=== PATIENT | female | born 1955 | race Hispanic/Latino ===

== ENCOUNTER 2018-04-12 20:52 | Emergency (ER) | payer OTHER ==
--- OUTSIDE RECORDS SUMMARY | 2018-04-12 20:54 | XMS REPORT ---
:1955 Author Organization eClinicalWorks Care Team Providers Name Role Phone Nirav Carlton Provider Role Unavailable Allergies No Known Allergies Problems Problem Type Condition Code Onset Dates Condition Status Assessment Osteoarthritis M19.90 Active Assessment Benign essential HTN I10 Active Assessment Tubular adenoma of colon D12.6 Active Assessment Body mass index (BMI) 45.0-49.9, Z68.42 Active adult Problem Osteoarthritis M19.90 Active Problem Body mass index (BMI) 45.0-49.9, Z68.42 Active adult Problem Benign essential HTN I10 Active Problem BMI 45.0-49.9, adult Z68.42 Active Problem Benign essential hypertension I10 Active Problem Tubular adenoma of colon D12.6 Active Problem Osteoarthritis of multiple joints M15.9 Active Medications Medication Code Code Instructions Start End Date Status Dosage System Date Lisinopril-Hyd [facility] [id number] 20-12.5 MG Active 1 tablet rochlorothiazi Orally TWICE a de day Results No Known Results Summary Purpose eClinicalWorks Submission
[2018-04-12] MEDS ORDERED: HYDROCODONE/APAP 7.5/325 MG TAB ONE (21:31)
--- NOTE | 2018-04-12 21:49 | RAD REPORT ---
EXAM DESCRIPTION: CT - Head Brain Wo Cont - 04/12/2018 9:32 pm CLINICAL HISTORY: Head injury with headache COMPARISON: None. TECHNIQUE: Computed axial tomography of the head was obtained. IV contrast was not requested. All CT scans are performed using dose optimization technique as appropriate and may include automated exposure control or mA/KV adjustment according to patient size. FINDINGS: An intracranial bleed is not seen . The ventricles are normal in caliber. No extra-axial fluid collection is noted. Fluid within the sinuses/ mastoids is not seen. IMPRESSION: No acute intracranial abnormality is seen. If patient's symptoms persist MRI of the bra in would be recommended.
--- NOTE | 2018-04-12 22:03 | EDPHYS ---
Physician Documentation [facility] Name: Misty Garrett Age: 62 yrs Sex: Female : 1955 Arrival Date: 04/12/2018 Time: 20:55 Bed 16 Private MD: [facility] ED Physician Prateek Lassiter HPI: 04/12 21:07 This 62 yrs old Female presents to ER via Ambulatory with complaints of Head kav Injury-Adult. 21:57 The patient or guardian reports injury, pain, tenderness. The complaints affect the top kav of head. Context of injury: The problem was sustained at work, resulted from standing up, and hitting a shelf. Onset: The symptoms/episode began/occurred acutely, just prior to arrival. Associated signs and symptoms: Loss of consciousness: This patient did not experience any loss of consciousness. Pertinent positives: headache, top of head. Severity of symptoms: At their worst the symptoms were moderate, just prior to arrival, in the emergency department the symptoms are unchanged. The patient has not experienced similar symptoms in the past. The patient has not experienced similar symptoms in the past. The patient has not recently seen a physician. Patient report standing up to put up laundry and hit the top of her head on the linen cart. She c/o moderated tenderness top of head. Slight swelling top of head and tenderness with palpation.. Historical: - Allergies: 21:01 Morphine; aj - Home Meds: 21:01 lisinopril-hydrochlorothiazide 20-12.5 mg oral tab 1 tab once daily [Active]; aj - PMHx: 21:01 Hypertension; aj - PSHx: 21:01 Cholecystectomy; Knee surgery; aj - Immunization history:: Adult Immunizations up to date. - Social history:: Smoking status: Patient/guardian denies using tobacco. - Ebola Screening: : Patient negative for fever greater than or equal to 101.5 degrees Fahrenheit, and additional compatible Ebola Virus Disease symptoms Patient denies exposure to infectious person Patient denies travel to an Ebola-affected area in the 21 days before illness onset No symptoms or risks identified at this time. - Family history:: not pertinent. - Hospitalizations: : No recent hospitalization is reported. ROS: 21:59 Constitutional: Negative for fever, chills, and weight loss, Eyes: Negative for injury, kav pain, redness, and discharge, ENT: Negative for injury, pain, and discharge, Neck: Negative for injury, pain, and swelling, Cardiovascular: Negative for chest pain, palpitations, and edema, Respiratory: Negative for shortness of breath, cough, wheezing, and pleuritic chest pain, Abdomen/GI: Negative for abdominal pain, nausea, vomiting, diarrhea, and constipation, Back: Negative for injury and pain, : Negative for injury, bleeding, discharge, and swelling, MS/Extremity: Negative for injury and deformity, Neuro: Negative for headache, weakness, numbness, tingling, and seizure, Psych: Negative for depression, anxiety, suicide ideation, homicidal ideation, and hallucinations, Allergy/Immunology: Negative for hives, rash, and allergies, Endocrine: Negative for neck swelling, polydipsia, polyuria, polyphagia, and marked weight changes, Hematologic/Lymphatic: Negative for swollen nodes, abnormal bleeding, and unusual bruising. 21:59 Skin: Positive for swelling, of the top of head. Exam: 21:59 Constitutional: This is a well developed, well nourished patient who is awake, alert, kav and in no acute distress. Eyes: Pupils equal round and reactive to light, extra-ocular motions intact. Lids and lashes normal. Conjunctiva and sclera are non-icteric and not injected. Cornea within normal limits. Periorbital areas with no swelling, redness, or edema. ENT: Nares patent. No nasal discharge, no septal abnormalities noted. Tympanic membranes are normal and external auditory canals are clear. Oropharynx with no redness, swelling, or masses, exudates, or evidence of obstruction, uvula midline. Mucous membranes moist. Neck: Trachea midline, no thyromegaly or masses palpated, and no cervical lymphadenopathy. Supple, full range of motion without nuchal rigidity, or vertebral point tenderness. No Meningismus. Chest/axilla: Normal chest wall appearance and motion. Nontender with no deformity. No lesions are appreciated. Cardiovascular: Regular rate and rhythm with a normal S1 and S2. No gallops, murmurs, or rubs. Normal PMI, no JVD. No pulse deficits. Respiratory: Lungs have equal breath sounds bilaterally, clear to auscultation and percussion. No rales, rhonchi or wheezes noted. No increased work of breathing, no retractions or nasal flaring. Abdomen/GI: Soft, non-tender, with normal bowel sounds. No distension or tympany. No guarding or rebound. No evidence of tenderness throughout. Back: No spinal tenderness. No costovertebral tenderness. Full range of motion. Skin: Warm, dry with normal turgor. Normal color with no rashes, no lesions, and no evidence of cellulitis. MS/ Extremity: Pulses equal, no cyanosis. Neurovascular intact. Full, normal range of motion. Neuro: Awake and alert, GCS 15, oriented to person, place, time, and situation. Cranial nerves II-XII grossly intact. Motor strength 5/5 in all extremities. Sensory grossly intact. Cerebellar exam normal. Normal gait. Psych: Awake, alert, with orientation to person, place and time. Behavior, mood, and affect are within normal limits. 21:59 Head/face: Noted is contusion, that is superficial, of the top of head, swelling, that is mild, of the top of head, tenderness, that is moderate. Vital Signs: 21:01 BP 145 / 79; Pulse 80; Resp 18; Temp 98.6; Pulse Ox 98% on R/A; Weight 109.77 kg; aj Height 5 ft. 1 in. (154.94 cm); 21:45 BP 136 / 81; Pulse 76; Resp 16; Temp 98(O); Pulse Ox 100% on R/A; Pain 3/10; bs1 21:01 Body Mass Index 45.73 (109.77 kg, 154.94 cm) Leland Coma Score: 20:59 Eye Response: spontaneous(4). Verbal Response: oriented(5). Motor Response: obeys aj commands(6). Total: 15. 21:57 Eye Response: spontaneous(4). Verbal Response: oriented(5). Motor Response: obeys kav commands(6). Total: 15. 21:59 Eye Response: spontaneous(4). Verbal Response: oriented(5). Motor Response: obeys kav commands(6). Total: 15. MDM: 21:22 Medical screening is not applicable. kav 21:59 Data reviewed: vital signs, nurses notes, radiologic studies, CT scan. ka 04/12 21:21 Order name: CT Head Brain wo Cont; Complete Time: 21:52 kav Administered Medications: 21:43 Drug: Rome (7.5 mg-325 mg) 1 tabs Route: PO; bs1 22:16 Follow up: Response: No adverse reaction bs1 Disposition: 23:30 Co-signature as Attending Physician, Prateek Lassiter MD. prabha Disposition: 04/12/18 22:02 Discharged to Home. Impression: Contusion of scalp. - Condition is Stable. - Discharge Instructions: Contusion, [id number]. - Medication Reconciliation Form, Thank You Letter form. - Follow up: Nirav Carlton DO; When: 2 - 3 days; Reason: If symptoms return, Recheck today's complaints, Continuance of care, Re-evaluation by your physician. - Problem is new. - Symptoms have improved. Signatures: Dispatcher [employer] EDAilyn John, RN RN Prateek Heath MD MD pkl Vern, Katherine, PUBLIC HEALTH ADMINISTRATOR PUBLIC HEALTH ADMINISTRATOR Aspen Quispe, RN RN bs1 Corrections: (The following items were deleted from the chart) 22:16 22:02 04/12/2018 22:02 Discharged to Home. Impression: Contusion of scalp. Condition is bs1 Stable. Forms are Medication Reconciliation Form, Thank You Letter, Antibiotic Education, Prescription Opioid Use. Follow up: Nirav Carlton; When: 2 - 3 days; Reason: If symptoms return, Recheck today's complaints, Continuance of care, Re-evaluation by your physician. Problem is new. Symptoms have improved. kav
--- NOTE | 2018-04-12 22:03 | ER ---
Nurse's Notes [facility] Emergency Department Name: Misty Garrett Age: 62 yrs Sex: Female : 1955 Arrival Date: 04/12/2018 Time: 20:55 Bed 16 Private MD: Nirav Carlton Diagnosis: Contusion of scalp Presentation: 04/12 20:59 Presenting complaint: Patient states: Hit top of head on shelf of linen cart 1 hour aj ago. Reports pain to top of head. No bruising or bleeding noted. Transition of care: patient was not received from another setting of care. Mechanism of Injury: resulted from impacting a hard surface, hitting metal surface. Onset of symptoms was April 12, 2018. Risk Assessment: Do you want to hurt yourself or someone else? Patient reports no desire to harm self or others. Initial Sepsis Screen: Does the patient meet any 2 criteria? No. Patient's initial sepsis screen is negative. Does the patient have a suspected source of infection? No. Patient's initial sepsis screen is negative. Care prior to arrival: None. 20:59 Method Of Arrival: Ambulatory 20:59 Acuity: SCAR 4 aj Triage Assessment: 21:01 General: Appears in no apparent distress. comfortable, Behavior is calm, cooperative, aj appropriate for age. Pain: Complains of pain in top of head. Neuro: Level of Consciousness is awake, alert, obeys commands, Oriented to person, place, time, situation, Appropriate for age Reports headache. Respiratory: Airway is patent Respiratory effort is even, unlabored, Respiratory pattern is regular, symmetrical. Derm: Skin is intact, is healthy with good turgor, Skin is pink, warm \T\ dry. normal. Historical: - Allergies: 21:01 Morphine; aj - Home Meds: 21:01 lisinopril-hydrochlorothiazide 20-12.5 mg oral tab 1 tab once daily [Active]; aj - PMHx: 21:01 Hypertension; aj - PSHx: 21:01 Cholecystectomy; Knee surgery; aj - Immunization history:: Adult Immunizations up to date. - Social history:: Smoking status: Patient/guardian denies using tobacco. - Ebola Screening: : Patient negative for fever greater than or equal to 101.5 degrees Fahrenheit, and additional compatible Ebola Virus Disease symptoms Patient denies exposure to infectious person Patient denies travel to an Ebola-affected area in the 21 days before illness onset No symptoms or risks identified at this time. - Family history:: not pertinent. - Hospitalizations: : No recent hospitalization is reported. Screenin:13 Abuse screen: Denies threats or abuse. Denies injuries from another. Nutritional bs1 screening: No deficits noted. Tuberculosis screening: No symptoms or risk factors identified. Fall Risk None identified. Assessment: 21:05 General: Appears in no apparent distress. uncomfortable, Behavior is calm, cooperative, bs1 appropriate for age. Pain: Complains of pain in face and top of head Pain does not radiate. Neuro: Level of Consciousness is awake, alert, obeys commands, Oriented to person, place, time, situation, Appropriate for age Gait is steady, Speech is normal, Facial symmetry appears normal, Pupils are PERRLA, Intact Reports headache. Cardiovascular: Denies chest pain, shortness of breath, Heart tones S1 S2 present Capillary refill < 3 seconds Patient's skin is warm and dry. Respiratory: Airway is patent Trachea midline Respiratory effort is even, unlabored, Respiratory pattern is regular, symmetrical, Breath sounds are clear bilaterally. 21:05 GI: No signs and/or symptoms were reported involving the gastrointestinal system. : bs1 No signs and/or symptoms were reported regarding the genitourinary system. EENT: No signs and/or symptoms were reported regarding the EENT system. Derm: Skin is intact, patient reports pain to scalp/top of head, no open wound/drainage noted, reports hitting head, no loc. Musculoskeletal: Circulation, motion, and sensation intact. Capillary refill < 3 seconds, Range of motion: intact in all extremities. 22:10 Reassessment: Patient appears in no apparent distress at this time. Patient and/or bs1 family updated on plan of care and expected duration. Pain level reassessed. Patient is alert, oriented x 3, equal unlabored respirations, skin warm/dry/pink. Patient states understanding of discharge instructions/POC. Vital Signs: 21:01 BP 145 / 79; Pulse 80; Resp 18; Temp 98.6; Pulse Ox 98% on R/A; Weight 109.77 kg; aj Height 5 ft. 1 in. (154.94 cm); 21:45 BP 136 / 81; Pulse 76; Resp 16; Temp 98(O); Pulse Ox 100% on R/A; Pain 3/10; bs1 21:01 Body Mass Index 45.73 (109.77 kg, 154.94 cm) aj Wade Coma Score: 20:59 Eye Response: spontaneous(4). Verbal Response: oriented(5). Motor Response: obeys aj commands(6). Total: 15. 21:57 Eye Response: spontaneous(4). Verbal Response: oriented(5). Motor Response: obeys kav commands(6). Total: 15. 21:59 Eye Response: spontaneous(4). Verbal Response: oriented(5). Motor Response: obeys kav commands(6). Total: 15. ED Course: 20:55 Patient arrived in ED. es 20:55 Nirav Carlton DO is Private Physician. es 21:00 Triage completed. aj 21:01 Arm band placed on left wrist. Patient placed in an exam room. aj 21:06 July Montgomery FNP is PHCP. kav 21:06 Prateek Lassiter MD is Attending Physician. kav 21:13 Aspen Wilder, AN is Primary Nurse. bs1 21:15 Patient has correct armband on for positive identification. Bed in low position. Call bs1 light in reach. Side rails up X 1. Pulse ox on. NIBP on. Warm blanket given. 21:[address] via wheelchair. vr 21:29 CT completed. Patient tolerated procedure well. Patient moved back from CT. nj 21:33 CT Head Brain wo Cont In Process Unspecified. EDMS 22:02 Nirav Carlton DO is Referral Physician. kav 22:14 No provider procedures requiring assistance completed. Patient did not have IV access bs1 during this emergency room visit. Administered Medications: 21:43 Drug: Isabel (7.5 mg-325 mg) 1 tabs Route: PO; bs1 22:16 Follow up: Response: No adverse reaction bs1 Outcome: 22:02 Discharge ordered by . kav 22:14 Discharged to home ambulatory. bs1 22:14 Condition: stable 22:14 Discharge instructions given to patient, Instructed on discharge instructions, follow up and referral plans. Demonstrated understanding of instructions, follow-up care. 22:16 Patient left the ED. bs1 Signatures: Dispatcher [employer] EDAilyn John, RN RN July Carmen, MAINTENANCE TEAM MEMBER MAINTENANCE TEAM MEMBER coty Montenegro, Dian Chauhan Nathan nj Salazar, Brittany, RN RN bs1 Corrections: (The following items were deleted from the chart) 22:12 21:05 Neuro: Level of Consciousness is awake, alert, obeys commands, Oriented to bs1 person, place, time, situation, Appropriate for age Gait is steady, Speech is normal, Facial symmetry appears normal, Pupils are PERRLA, Intact bs1
[2018-04-12 22:48] VITALS: BP 136/81; TEMP 98; O2SAT 100
== END 2018-04-12 22:16 | disposition home or self-care (01) ==
LOC: ER 20:52
DX: S00.03XA Contusion of scalp, initial encounter (principal); W22.09XA Striking against other stationary object, initial encounter; Y93.89 Activity, other specified; Y92.69 Other specified industrial and construction area as the place of occurrence of the external cause; Z88.5 Allergy status to narcotic agent; I10 Essential (primary) hypertension
CPT/HCPCS: 70450; 99284

== ENCOUNTER 2018-11-07 16:34 | Emergency (ER) | payer OTHER ==
--- OUTSIDE RECORDS SUMMARY | 2018-11-07 16:37 | XMS REPORT ---
[...] End Date Status Dosage System Date Lisinopril-Hyd [facility] [id number] 20-12.5 MG Active 1 tablet rochlorothiazi Orally TWICE a de day Results No Known Results Summary Purpose eClinicalWorks Submission
--- OUTSIDE RECORDS SUMMARY | 2018-11-07 16:37 | XMS REPORT ---
:1955 Author Organization eClinicalWorks Care Team Providers Name Role Phone Nirav Carlton Provider Role Unavailable Allergies, Adverse Reactions, Alerts Substance Reaction Event Type N.K.D.A. Info Not Available Non Drug Allergy Problems Problem Type Condition Code Onset Dates Condition Status Assessment Benign essential HTN I10 Active Assessment Encounter for preventative adult Z00.01 Active health care exam with abnormal findings Problem Osteoarthritis M19.90 Active Problem Body mass index (BMI) 45.0-49.9, Z68.42 Active adult Problem Benign essential HTN I10 Active Problem BMI 45.0-49.9, adult Z68.42 Active Problem Benign essential hypertension I10 Active Problem Tubular adenoma of colon D12.6 Active Problem Osteoarthritis of multiple joints M15.9 Active Assessment Body mass index (BMI) 45.0-49.9, Z68.42 Active adult Assessment Screening mammogram for high-risk Z12.31 Active patient Assessment Osteoarthritis M19.90 Active Assessment Tubular adenoma of colon D12.6 Active Assessment Need for Tdap vaccination Z23 Active Medications Medication Code Code Instructions Start End Date Status Dosage System Date Lisinopril-Hyd [facility] [id number] 20-12.5 MG Active 1 tablet rochlorothiazi Orally TWICE a de day Results No Known Results Immunizations Vaccine Administration Date TDAP > 7 Years-Adacel Jun 05, 2018 Summary Purpose eClinicalWorks Submission
--- OUTSIDE RECORDS SUMMARY | 2018-11-07 16:37 | XMS REPORT ---
:1955 Author Organization eClinicalWorks Care Team Providers Name Role Phone CarltonNirav Provider Role Unavailable Allergies No Known Allergies Problems Problem Type Condition Code Onset Dates Condition Status Assessment Work related injury Y99.0 Active Assessment Contusion of scalp, subsequent S00.03XD Active encounter Problem Osteoarthritis M19.90 Active Problem Body mass index (BMI) 45.0-49.9, Z68.42 Active adult Problem Benign essential HTN I10 Active Problem BMI 45.0-49.9, adult Z68.42 Active Problem Benign essential hypertension I10 Active Problem Tubular adenoma of colon D12.6 Active Problem Osteoarthritis of multiple joints M15.9 Active Medications Medication Code Code Instructions Start End Date Status Dosage System Date Lisinopril-Hyd [facility] [id number] 20-12.5 MG Active 1 tablet rochlorothiazi Orally TWICE a de day Results No Known Results Summary Purpose eClinicalWorks Submission
[2018-11-07] MEDS ORDERED: TRAMADOL HCL 50 MG TAB ONE (18:30)
--- NOTE | 2018-11-07 19:16 | RAD REPORT ---
EXAM DESCRIPTION: RAD - Foot Left 3 View - 11/07/2018 6:53 pm CLINICAL HISTORY: Left Foot pain FINDINGS: No fracture or dislocation is seen. Bones appear osteoporotic. Small to moderate spur extends off of the plantar aspect of the calcaneus
--- NOTE | 2018-11-07 19:32 | EDPHYS ---
Physician Documentation [facility] Name: Misty Garrett Age: 63 yrs Sex: Female : 1955 Arrival Date: 11/07/2018 Time: 16:38 Bed 16 Private MD: [facility] ED Physician Renny Singh HPI: 11/07 18:11 This 63 yrs old Female presents to ER via Ambulatory with complaints of Foot jmm Pain. 18:11 The patient presents with pain, that is acute. Onset: The symptoms/episode jmm began/occurred 2 day(s) ago. Modifying factors: The symptoms are alleviated by nothing. the symptoms are aggravated by weight bearing. Associated signs and symptoms: Pertinent positives: swelling, Pertinent negatives fever. This is a 63 year old female with a history of htn that presents to the ED with complaints of left great toe pain beginning approx 2 days ago after a cart rolled over her foot. Patient denies fever. Patient states she noticed purulent drainage coming from the toenail. . Historical: - Allergies: 17:21 Morphine; "i get wild, hallucinations"; tw2 - Home Meds: 17:21 lisinopril-hydrochlorothiazide 20-12.5 mg Oral tab 1 tab once daily [Active]; tw2 - PMHx: 17:21 Hypertension; tw2 - PSHx: 17:21 Cholecystectomy; Knee surgery; tw2 - Immunization history:: Adult Immunizations. - Social history:: Smoking status: Patient/guardian denies using tobacco. - Ebola Screening: : Patient denies travel to an Ebola-affected area in the 21 days before illness onset. ROS: 18:11 Constitutional: Negative for fever, chills, and weight loss, Cardiovascular: Negative jmm for chest pain, palpitations, and edema, Respiratory: Negative for shortness of breath, cough, wheezing, and pleuritic chest pain. 18:11 MS/extremity: Positive for pain, swelling. 18:11 All other systems are negative. Exam: 18:11 Head/Face: atraumatic. Eyes: EOMI, no conjunctival erythema appreciated ENT: Moist jmm Mucus Membranes Neck: Trachea midline, Supple Chest/axilla: Normal chest wall appearance and motion. Cardiovascular: Regular rate and rhythm. No edema appreciated Respiratory: Normal respirations, no respiratory distress appreciated Abdomen/GI: Non distended, soft 18:11 Constitutional: The patient appears alert, awake, uncomfortable. 18:11 Skin: erythema noted to the left great toe distally, TTP, < 2 sec dist cap refill, NVI. 18:11 Neuro: Orientation: is normal, Mentation: is normal, Memory: is normal. 18:11 Psych: Behavior/mood is pleasant, cooperative. Vital Signs: 17:21 BP 156 / 91; Pulse 94; Resp 17; Temp 97.0(TE); Pulse Ox 100% on R/A; Weight 107.05 kg tw2 (R); Height 5 ft. 1 in. (154.94 cm); Pain 5/10; 19:15 BP 121 / 69; Pulse 87; Resp 19 S; Temp 98.8(O); Pulse Ox 99% on R/A; cc3 17:21 Body Mass Index 44.59 (107.05 kg, 154.94 cm) tw2 MDM: 18:11 Patient medically screened. [facility] 19:32 Data reviewed: vital signs, nurses notes. Counseling: I had a detailed discussion with gage the patient and/or guardian regarding: the historical points, exam findings, and any diagnostic results supporting the discharge/admit diagnosis, radiology results, the need for outpatient follow up, to return to the emergency department if symptoms worsen or persist or if there are any questions or concerns that arise at home. ED course: Patient is alert and non toxic in appearance in the ED. xray negative for fracture, patient will be treated with antibiotics due to concerns for cellulitis. Patient given strict return precautions. Patient understood and agrees with the plan of care. . 11/07 18:51 Order name: Foot Left 3 View; Complete Time: 19:21 EDMS Administered Medications: 18:11 Drug: traMADol 50 mg Route: PO; 18:21 Follow up: Response: No adverse reaction Disposition: 11/08 07:31 Co-signature as Attending Physician, Renny Singh MD I agree with the assessment and kdr plan of care. Disposition: 11/07/18 19:32 Discharged to Home. Impression: Cellulitis of left toe. - Condition is Stable. - Discharge Instructions: Cellulitis, Adult, Eyyt-mm-Ojoy. - Prescriptions for Ultracet 37.5- 325 mg Oral Tablet - take 1 tablet by ORAL route every 6 hours - for up to 5 days; do not exceed 8 tablets per day.; 12 tablet. Bactrim DS 800- 160 mg Oral Tablet - take 1 tablet by ORAL route every 12 hours for 10 days; 20 tablet. - Medication Reconciliation Form, Thank You Letter, Antibiotic Education, Prescription Opioid Use, Work release form form. - Follow up: Antonio Castellano DPM; When: 1 - 2 days; Reason: Recheck today's complaints, Continuance of care, Re-evaluation by your physician. Signatures: Dispatcher [employer] EDKS Renny Singh MD MD [facility] Miko Azul PA PA Moises Mobley, RN RN hj Alyson Palma RN RN tw2 Krissy Hernandez cc3 Corrections: (The following items were deleted from the chart) 11/07 18:51 18:12 Foot Right 3 View+RAD.RAD.BRZ ordered. [facility] 19:50 19:32 11/07/2018 19:32 Discharged to Home. Impression: Cellulitis of left toe. cc3 Condition is Stable. Forms are Medication Reconciliation Form, Thank You Letter, Antibiotic Education, Prescription Opioid Use. Follow up: Antonio Castellano; When: 1 - 2 days; Reason: Recheck today's complaints, Continuance of care, Re-evaluation by your physician. gage
--- NOTE | 2018-11-07 19:32 | ER ---
Nurse's Notes [facility] Name: Misty Garrett Age: 63 yrs Sex: Female : 1955 Arrival Date: 11/07/2018 Time: 16:38 Bed 16 Private MD: Nirav Carlton Diagnosis: Cellulitis of left toe Presentation: 11/07 17:19 Presenting complaint: Patient states: my big toe on my LEFT foot hurts really bad, last tw2 night it was throbbing after work, i soaked it last night and it kept me awake, i think i have pus. 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 Transition of care: patient was not received from another setting of care. Onset of symptoms was November 07, 2018. Risk Assessment: Do you want to hurt yourself or someone else? Patient reports no desire to harm self or others. Initial Sepsis Screen: Does the patient meet any 2 criteria? No. Patient's initial sepsis screen is negative. Does the patient have a suspected source of infection? No. Patient's initial sepsis screen is negative. Care prior to arrival: None. 17:19 Method Of Arrival: Ambulatory tw2 17:19 Acuity: SCAR 4 tw2 Triage Assessment: 17:21 General: Appears uncomfortable, obese, Behavior is calm, cooperative, appropriate for tw2 age. Pain: Complains of pain in left first toe, medial aspect of left toes and Left first toenail. Historical: - Allergies: 17:21 Morphine; "i get wild, hallucinations"; tw2 - Home Meds: 17:21 lisinopril-hydrochlorothiazide 20-12.5 mg Oral tab 1 tab once daily [Active]; tw2 - PMHx: 17:21 Hypertension; tw2 - PSHx: 17:21 Cholecystectomy; Knee surgery; tw2 - Immunization history:: Adult Immunizations. - Social history:: Smoking status: Patient/guardian denies using tobacco. - Ebola Screening: : Patient denies travel to an Ebola-affected area in the 21 days before illness onset. Screenin:58 Abuse screen: Denies threats or abuse. Denies injuries from another. Nutritional hj screening: No deficits noted. Tuberculosis screening: No symptoms or risk factors identified. Fall Risk None identified. Assessment: 19:15 Reassessment: Patient appears in no apparent distress at this time. Patient and/or cc3 family updated on plan of care and expected duration. Pain level reassessed. Patient is alert, oriented x 3, equal unlabored respirations, skin warm/dry/pink. Received this female patient from morning shift RN Moises as a case of left foot pain. No IV cannula in situ. 19:45 Reassessment: Patient appears in no apparent distress at this time. Patient and/or cc3 family updated on plan of care and expected duration. Pain level reassessed. Patient is alert, oriented x 3, equal unlabored respirations, skin warm/dry/pink. MIGUEL Azul discharged the patient home with prescription given. No IV cannula in situ. Patient left ER vitally stable and ambulatory. Patient states feeling better. Patient states symptoms have improved. Vital Signs: 17:21 BP 156 / 91; Pulse 94; Resp 17; Temp 97.0(TE); Pulse Ox 100% on R/A; Weight 107.05 kg tw2 (R); Height 5 ft. 1 in. (154.94 cm); Pain 5/10; 19:15 BP 121 / 69; Pulse 87; Resp 19 S; Temp 98.8(O); Pulse Ox 99% on R/A; cc3 17:21 Body Mass Index 44.59 (107.05 kg, 154.94 cm) tw2 ED Course: 16:38 Patient arrived in ED. dl4 16:38 Nirav Carlton DO is Private Physician. dl4 17:20 Triage completed. tw2 17:20 Arm band placed on. tw2 17:38 Miko Azul PA is [facility]. m 17:38 Renny Singh MD is Attending Physician. jmm 17:39 Moises Mckenna, AN is Primary Nurse. hj 17:58 Patient has correct armband on for positive identification. Bed in low position. Call hj light in reach. Side rails up X 1. 18:52 Foot Left 3 View In Process Unspecified. EDMS 19:32 Antonio Castellano DPM is Referral Physician. jmm 19:45 No provider procedures requiring assistance completed. Patient did not have IV access cc3 during this emergency room visit. Administered Medications: 18:11 Drug: traMADol 50 mg Route: PO; hj 18:21 Follow up: Response: No adverse reaction hj Outcome: 19:32 Discharge ordered by MD. almonte 19:45 Discharged to home ambulatory. cc3 19:45 Condition: stable 19:45 Discharge instructions given to patient, Instructed on discharge instructions, follow up and referral plans. medication usage, Demonstrated understanding of instructions, follow-up care, medications, Prescriptions given X 2. 19:50 Patient left the ED. cc3 Signatures: Dispatcher [employer] EDCO Miko Azul, Moises Bello RN RN Alyson Ryan RN RN tw2 Krissy Hernandez cc3 Randolph Murphy dl4 Corrections: (The following items were deleted from the chart) 18:51 18:50 In radiology for Foot Right 3 View+RAD.RAD.BRZ. [facility] EDCO [id number] 00:32 03/06 19:45 Reassessment: Patient appears in no apparent distress at this time. Patient cc3 and/or family updated on plan of care and expected duration. Pain level reassessed. Patient is alert, oriented x 3, equal unlabored respirations, skin warm/dry/pink. MIGUEL Azul discharged the patient home with prescription given. No IV cannula in situ. Patient left ER vitally stable and ambulatory. cc3
[2018-11-07 20:00] VITALS: BP 121/69; TEMP 98.8; O2SAT 99
== END 2018-11-07 19:50 | disposition home or self-care (01) ==
LOC: ER 16:34
DX: L03.032 Cellulitis of left toe (principal); I10 Essential (primary) hypertension; Z88.5 Allergy status to narcotic agent
CPT/HCPCS: 99283

== ENCOUNTER 2019-05-28 11:16 | Emergency (ER) | payer OTHER ==
[2019-05-28] MEDS ORDERED: IBUPROFEN 400 MG TAB ONE (12:27)
[2019-05-28] MEDS ORDERED: CYCLOBENZAPRINE 10 MG TAB ONE (12:27)
[2019-05-28] MEDS ORDERED: LIDOCAINE 5% PATCH ONE (12:28)
--- NOTE | 2019-05-28 13:06 | EDPHYS ---
Physician Documentation [facility] Name: Misty Garrett Age: 64 yrs Sex: Female : 1955 Arrival Date: 05/28/2019 Time: 11:18 Bed 10 Private MD: ED Physician Naivd Garcia HPI: 05/28 13:03 This 64 yrs old Female presents to ER via Ambulatory with complaints of Right pm1 Leg Pain. 13:03 The patient presents with pain. The complaints affect the right low back and right leg. pm1 Context: The problem was sustained at work, resulted from possibly bending. 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 Onset: The symptoms/episode began/occurred yesterday. Modifying factors: The symptoms are alleviated by remaining still, the symptoms are aggravated by movement. Associated signs and symptoms: The patient has no apparent associated signs or symptoms. Treatment prior to arrival includes: no previous treatment. Severity of symptoms: in the emergency department the symptoms are actually worse. The patient has not experienced similar symptoms in the past. The patient has not recently seen a physician. 13:03 Right low back pain radiating down to right toe. pm1 Historical: - Allergies: 11:22 Morphine; "i get wild, hallucinations"; sv - PMHx: 11:22 Hypertension; sv - PSHx: 11:22 Cholecystectomy; Knee surgery; sv - Immunization history:: Adult Immunizations unknown. - Social history:: Smoking status: Patient/guardian denies using tobacco. - Ebola Screening: : Patient negative for fever greater than or equal to 101.5 degrees Fahrenheit, and additional compatible Ebola Virus Disease symptoms Patient denies exposure to infectious person Patient denies travel to an Ebola-affected area in the 21 days before illness onset No symptoms or risks identified at this time. ROS: 13:03 Constitutional: Negative for fever, chills, and weight loss, Eyes: Negative for injury, pm1 pain, redness, and discharge, ENT: Negative for injury, pain, and discharge, Neck: Negative for injury, pain, and swelling, Cardiovascular: Negative for chest pain, palpitations, and edema, Respiratory: Negative for shortness of breath, cough, wheezing, and pleuritic chest pain, Abdomen/GI: Negative for abdominal pain, nausea, vomiting, diarrhea, and constipation. 13:03 MS/Extremity: Negative for injury and deformity, Skin: Negative for injury, rash, and discoloration, Neuro: Negative for headache, weakness, numbness, tingling, and seizure. 13:03 Back: Positive for pain with movement. Exam: 13:03 Constitutional: This is a well developed, well nourished patient who is awake, alert, pm1 and in no acute distress. Head/Face: Normocephalic, atraumatic. Neck: Trachea midline, no thyromegaly or masses palpated, and no cervical lymphadenopathy. Supple, full range of motion without nuchal rigidity, or vertebral point tenderness. No Meningismus. Chest/axilla: Normal chest wall appearance and motion. Nontender with no deformity. No lesions are appreciated. Cardiovascular: Regular rate and rhythm with a normal S1 and S2. No gallops, murmurs, or rubs. Normal PMI, no JVD. No pulse deficits. Respiratory: Lungs have equal breath sounds bilaterally, clear to auscultation and percussion. No rales, rhonchi or wheezes noted. No increased work of breathing, no retractions or nasal flaring. Abdomen/GI: Soft, non-tender, with normal bowel sounds. No distension or tympany. No guarding or rebound. No evidence of tenderness throughout. 13:03 Skin: Warm, dry with normal turgor. Normal color with no rashes, no lesions, and no evidence of cellulitis. MS/ Extremity: Pulses equal, no cyanosis. Neurovascular intact. Full, normal range of motion. 13:03 Back: pain, that is moderate, of the right low back, normal spinal alignment noted, vertebral tenderness, is not appreciated, muscle spasm, is appreciated in the right low back. 13:03 Neuro: Orientation: is normal, Motor: is normal, moves all fours. Vital Signs: 11:22 BP 140 / 66; Pulse 93; Resp 20; Temp 98.1; Pulse Ox 100% ; Weight 109.77 kg; Height 5 sv ft. 1 in. (154.94 cm); Pain 10/10; 11:22 Body Mass Index 45.73 (109.77 kg, 154.94 cm) sv MDM: 11:56 Patient medically screened. pm1 13:03 Data reviewed: vital signs. Data interpreted: Pulse oximetry: on room air is 100 %. pm1 Interpretation: normal. Counseling: I had a detailed discussion with the patient and/or guardian regarding: the historical points, exam findings, and any diagnostic results supporting the discharge/admit diagnosis, the need for outpatient follow up, to return to the emergency department if symptoms worsen or persist or if there are any questions or concerns that arise at home. Administered Medications: 12:32 Drug: Lidoderm 5 % (700 mg/patch) 1 patches Route: Topical; Site: affected area; iw 12:32 Drug: Flexeril 10 mg Route: PO; iw 13:20 Follow up: Response: No adverse reaction; Pain is decreased iw 12:34 Drug: Ibuprofen 400 mg Route: PO; iw 13:15 Follow up: Response: No adverse reaction; Pain is decreased iw Disposition: 05/29 08:20 Co-signature as Attending Physician, Navid Garcia MD I agree with the assessment and melissa plan of care. Disposition: 05/28/19 13:05 Discharged to Home. Impression: Lumbago with sciatica, right side. - Condition is Stable. - Discharge Instructions: Back Pain, Adult, Sciatica. - Prescriptions for Lidoderm 5 % Topical adhesive patch,medicated - apply 1 patch by TRANSDERMAL route once daily As needed; 30 Transdermal Patch. Cyclobenzaprine 10 mg Oral Tablet - take 1 tablet by ORAL route every 8 hours As needed; 30 tablet. - Work release form, Medication Reconciliation Form, Thank You Letter, Antibiotic Education, Prescription Opioid Use form. - Follow up: Emergency Department; When: As needed; Reason: Worsening of condition. Follow up: Private Physician; When: 2 - 3 days; Reason: Recheck today's complaints, Continuance of care, Re-evaluation by your physician. - Problem is new. - Symptoms have improved. Signatures: Denita Pride RN RN sv Anderson, Corey, MD MD cha Williams, Irene, RN RN iw Marinas, Patrick, MARY TRANSPORTATION DISPATCH MANAGER pm1 Corrections: (The following items were deleted from the chart) 05/28 13:34 13:05 05/28/2019 13:05 Discharged to Home. Impression: Lumbago with sciatica, right iw side. Condition is Stable. Forms are Medication Reconciliation Form, Thank You Letter, Antibiotic Education, Prescription Opioid Use. Follow up: Emergency Department; When: As needed; Reason: Worsening of condition. Follow up: Private Physician; When: 2 - 3 days; Reason: Recheck today's complaints, Continuance of care, Re-evaluation by your physician. Problem is new. Symptoms have improved. pm1
--- NOTE | 2019-05-28 13:06 | ER ---
Nurse's Notes [facility] Name: Misty Garrett Age: 64 yrs Sex: Female : 1955 Arrival Date: 05/28/2019 Time: 11:18 Bed 10 Private MD: Diagnosis: Lumbago with sciatica, right side Presentation: 05/28 11:21 Presenting complaint: Patient states: RLE pain started last night at work and got worse sv today. Denies injury. Transition of care: patient was not received from another setting of care. Onset of symptoms was May 27, 2019. Risk Assessment: Do you want to hurt yourself or someone else? Patient reports no desire to harm self or others. Care prior to arrival: None. 11:21 Method Of Arrival: Ambulatory sv 11:21 Acuity: SCAR 4 sv 12:00 Initial Sepsis Screen: Does the patient meet any 2 criteria? No. Patient's initial iw sepsis screen is negative. Does the patient have a suspected source of infection? No. Patient's initial sepsis screen is negative. Triage Assessment: 11:21 General: Appears in no apparent distress. uncomfortable, Behavior is calm, cooperative, sv appropriate for age. Pain: Complains of pain in right leg. Neuro: Level of Consciousness is awake, alert, obeys commands, Oriented to person, place, time, situation, Gait is steady. Respiratory: Respiratory effort is even, unlabored, Respiratory pattern is regular, symmetrical. Historical: - Allergies: 11:22 Morphine; "i get wild, hallucinations"; sv - PMHx: 11:22 Hypertension; sv - PSHx: 11:22 Cholecystectomy; Knee surgery; sv - Immunization history:: Adult Immunizations unknown. - Social history:: Smoking status: Patient/guardian denies using tobacco. - Ebola Screening: : Patient negative for fever greater than or equal to 101.5 degrees Fahrenheit, and additional compatible Ebola Virus Disease symptoms Patient denies exposure to infectious person Patient denies travel to an Ebola-affected area in the 21 days before illness onset No symptoms or risks identified at this time. Screenin:00 Abuse screen: Denies threats or abuse. Denies injuries from another. Nutritional iw screening: No deficits noted. Tuberculosis screening: No symptoms or risk factors identified. Fall Risk None identified. Assessment: 11:45 General: Appears in no apparent distress. comfortable, Behavior is calm, cooperative. iw Pain: Complains of pain in lumbar area Pain radiates to right leg. Neuro: Level of Consciousness is awake, alert, obeys commands, Oriented to person, place, time, situation, Moves all extremities. Cardiovascular: Patient's skin is warm and dry. Respiratory: Respiratory effort is even, unlabored, Respiratory pattern is regular, symmetrical. GI: No signs and/or symptoms were reported involving the gastrointestinal system. Derm: Skin is intact, is healthy with good turgor. Musculoskeletal: Reports pain in back. Vital Signs: 11:22 BP 140 / 66; Pulse 93; Resp 20; Temp 98.1; Pulse Ox 100% ; Weight 109.77 kg; Height 5 sv ft. 1 in. (154.94 cm); Pain 10/10; 11:22 Body Mass Index 45.73 (109.77 kg, 154.94 cm) sv ED Course: 11:18 Patient arrived in ED. rg4 11:22 Triage completed. sv 11:22 Arm band placed on. sv 11:30 Patient has correct armband on for positive identification. iw 11:40 Kacie Franco, NA is Primary Nurse. iw 11:56 Joce Bradley NP is PHCP. pm1 11:56 Navid Garcia MD is Attending Physician. pm1 13:32 No provider procedures requiring assistance completed. Patient did not have IV access iw during this emergency room visit. Administered Medications: 12:32 Drug: Lidoderm 5 % (700 mg/patch) 1 patches Route: Topical; Site: affected area; iw 12:32 Drug: Flexeril 10 mg Route: PO; iw 13:20 Follow up: Response: No adverse reaction; Pain is decreased iw 12:34 Drug: Ibuprofen 400 mg Route: PO; iw 13:15 Follow up: Response: No adverse reaction; Pain is decreased iw Outcome: 13:05 Discharge ordered by . pm1 13:32 Discharged to iw 13:32 Condition: good 13:32 Discharge instructions given to patient, Instructed on discharge instructions, follow up and referral plans. medication usage, Demonstrated understanding of instructions, follow-up care, medications, Prescriptions given X 2. 13:34 Patient left the ED. iw Signatures: Denita Pride RN RN Kacie Franco RN RN Joce Bradley NP CLIENT DIRECTOR pm1 Abigail Pringlei rg4
[2019-05-28 13:39] VITALS: BP 140/66; TEMP 98.1; O2SAT 100
== END 2019-05-28 13:34 | disposition home or self-care (01) ==
LOC: ER 11:16
DX: M54.41 Lumbago with sciatica, right side (principal); Z88.6 Allergy status to analgesic agent
CPT/HCPCS: 99283

== ENCOUNTER 2019-06-12 06:15 | Day surgery (SDC) | payer OTHER ==
--- NOTE | 2019-06-05 09:40 | RAD REPORT ---
EXAM DESCRIPTION: Gabriel Marley (2 Views)06/05/2019 9:30 am CLINICAL HISTORY: Preop for carpal tunnel surgery. Hypertension COMPARISON: 2017 FINDINGS: The lungs appear clear of acute infiltrate. The heart is normal size IMPRESSION: No acute abnormalities displayed
[2019-06-05 10:04] LABS: Absolute Lymphocytes (CBC) 1.8 K/uL (0.7-4.9); Basophils % 0.6 % (0-1.3); Hematocrit 37.4 % (36.0-45.0)
[2019-06-05 10:08] LABS: Protime INR 0.93
[2019-06-05 10:17] LABS: Potassium 4.2 mmol/L (3.5-5.1)
--- NOTE | 2019-06-05 11:36 | EKG ---
Test Date: 2019-06-05 Test Time: 09:06:49 Dye Tub Operator: DOUGLAS MEASUREMENT RESULTS: Intervals: Rate: 66 TN: 162 QRSD: 82 QT: 402 QTc: 421 [place]: P: 33 TN: 162 QRS: 28 T: 28 INTERPRETIVE STATEMENTS: Normal sinus rhythm Possible Left atrial enlargement Nonspecific T wave abnormality Abnormal ECG Compared to ECG 05/25/2017 15:21:18 No significant changes Electronically Signed On 06-05-19 11:36:01 CDT by Bossman Fletcher
[2019-06-12] MEDS ORDERED: CEFAZOLIN/SWI 1gm 1 GM/10 ML SYR ONE (06:44)
[2019-06-12] MEDS ORDERED: Ringers Lactate 1,000 ML IV ONE (06:44)
[2019-06-12] MEDS ORDERED: LIDOCAINE 2% MPF 5 ML VIAL ONE (06:48)
[2019-06-12] MEDS ORDERED: PROPOFOL 200 MG/20 ML VIAL IV ONE (06:48)
[2019-06-12] MEDS ORDERED: FENTANYL CITR 100 MCG/2 ML ONE (06:48)
[2019-06-12] MEDS ORDERED: ONDANSETRON 4 MG/2 ML VIAL ONE (06:48)
[2019-06-12] MEDS ORDERED: MIDAZOLAM HCL 2 MG/2 ML INJ ONE (06:48)
[2019-06-12] MEDS ORDERED: BUPIVACAINE 0.25% PF 10 ML VIAL ONE (07:15)
[2019-06-12] MEDS ORDERED: NS 0.9% VIAL 10 ML ONE ×2 (07:47→07:52)
[2019-06-12] MEDS ORDERED: EPHEDRINE SULF 50 MG/ML VIAL ONE (07:51)
[2019-06-12] MEDS: FENTANYL CITR 100 MCG/2 ML ONE ×2 (08:39→08:48)
--- NOTE | 2019-06-12 08:39 | P.BOP ---
Preoperative diagnosis: left carpal tunnel syndrome Postoperative diagnosis: same Primary procedure: left carpal tunnel release [employer] Director: NONE,NONE Estimated blood loss: <5 cc Specimen: none Findings: see dictation Anesthesia: General Complications: None Implants: none Fluids & blood products: per anesthesia record; TT: 19 mins @ 250 mmHg Transferred to: Recovery Room Condition: Good
[2019-06-12 09:33] VITALS: BP 107/57; TEMP 97.1; O2SAT 100
[2019-06-12] MEDS ORDERED: CODEINE 30MG/APAP 300MG TAB ONE (09:40)
--- NOTE | 2019-06-14 03:55 | OP ---
Date of Procedure: 06/12/2019 Surgeon: Tristian Woo MD Preoperative Diagnosis: Left carpal tunnel syndrome. Postoperative Diagnosis: Left carpal tunnel syndrome. Procedure Performed: Left open carpal tunnel release. Anesthesia: General LMA. Fluids: Per Anesthesia record. Estimated Blood Loss: Less than 5 cc. Tourniquet Time: 19 minutes at 250 mmHg. Complications: None. Implants: None. Indication For Procedure: Ms. Garrett is a 64-year-old female who presented to my clinic with signs, s ymptoms, and EMG findings consistent with left carpal tunnel syndrome. Patient failed conservative t reatment measures. I discussed with the patient at length risks and benefits associated with operati ve and nonoperative treatment. She expressed understanding and elected to proceed with operative arthur atment. Description Of Procedure: After informed consent was obtained, the patient was identified in the pre operative holding area. The left upper extremity was marked. Patient was then brought back to the o perating room, transferred to the operating table in supine fashion and placed under general LMA anes thesia. The left upper extremity was then prepped and draped in usual sterile fashion. A time-out w as initiated. The correct patient and procedure were confirmed and identified. The patient had rece ived her preoperative prophylactic antibiotics. The left upper extremity was then exsanguinated usin g an Esmarch and the tourniquet was inflated to 250 mmHg. Approximately, a 3 cm longitudinal incisio n was made just ulnar to the thenar crease. Dissection was then taken down to the palmar fascia whic h was split and divided. A Sandy elevator was placed just deep to the palmar fascia to protect the m edian nerve. A 15-blade was then used to release the transverse carpal ligament as well as the palomo r fascia. Sandy elevator was noted at the median nerve was protected at all times. After complete r elease of the transverse carpal ligament was performed, a pair of Metzenbaum were then used to ensure all fascial bands were released with aiming the end superficially at all times to protect the median nerve. After full release of the transverse carpal ligament, palmar fascia was performed. The woun d was then irrigated thoroughly with normal saline. The skin was then approximated using a 5-0 Prole ne and sterile dressings were applied. Postoperative Plan: She will follow up in clinic in 1 week for wound check and suture removal. ESTEPHANIE/KAN Voice ID: [id number] Report ID: [id number]
== END 2019-06-12 10:36 | disposition home or self-care (01) ==
LOC: OR 06:15
PROVIDERS: ATTEND Orthopaedic Surgery Sports Medicine
PROC: 01N50ZZ Release Median Nerve, Open Approach (ICD-10-PCS; principal; 2019-06-12 07:30)
DX: G56.02 Carpal tunnel syndrome, left upper limb (principal); M19.90 Unspecified osteoarthritis, unspecified site; I10 Essential (primary) hypertension; E66.01 Morbid (severe) obesity due to excess calories; Z68.41 Body mass index [BMI] 40.0-44.9, adult; Z88.6 Allergy status to analgesic agent; Z90.49 Acquired absence of other specified parts of digestive tract; Z82.49 Family history of ischemic heart disease and other diseases of the circulatory system
CPT/HCPCS: 93005; 85025; 80048; 36415; 85610; 85730; 71046; 64721; J2704; J2250; J3010 ×2; J0690; J7120; J2405

== ENCOUNTER 2020-01-26 10:01 | Emergency (ER) | payer OTHER ==
--- OUTSIDE RECORDS SUMMARY | 2020-01-26 10:04 | XMS REPORT | Continuity of Care Document ---
:1955 Author Organization [employer] Care Team Providers Name Role Phone [facility] Unavailable Un available Problems No Data Provided for This Section Medications No Data Provided for This Section Allergies, Adverse Reactions, Alerts No Known Medication Allergies Immunizations No Data Provided for This Section Results No Data Provided for This Section Pathology Reports No Data Provided for This Section Diagnostic Reports No Data Provided for This Section Consultation Notes No Data Provided for This Section Discharge Summaries No Data Provided for This Section History and Physicals No Data Provided for This Section Vital Signs No Data Provided for This Section Encounters Location Location Encounter Encounter Reason Attending ADM OK Stat Source Details Type Number For Provider Date Date Visit Outpatient [id number] EVELIO 11/14 Active [facility] Zaid MNA Outside [id number] 12/26 12/28 [facility] Neurology Medical /2018 Neuro [place] Records Procedures No Data Provided for This Section Assessment and Plan No Data Provided for This Section Plan of Care No Data Provided for This Section Social History Social History Date Source No data available for this 12/28/2018 [facility] Neuro section Family History No Data Provided for This Section Advance Directives No Data Provided for This Section Functional Status No Data Provided for This Section
--- OUTSIDE RECORDS SUMMARY | 2020-01-26 10:05 | XMS REPORT ---
:1955 Author Organization [employer] Care Team Providers Name Role Phone Nirav Carlton Provider Role Unavailable Allergies No Known Allergies Problems Problem Type Condition Code Onset Dates Condition Statu s Problem BMI 45.0-49.9, adult Z68.42 Active Problem Tubular adenoma of colon D12.6 Act eben Problem Benign essential hypertension I10 Active Problem Osteoarthritis of multiple joints M15.9 Active Problem Carpal tunnel syndrome, left G56.02 Active Problem Bilateral carpal tunnel syndrome G56.03 Active Problem Carpal tunnel syndrome of left wrist G56.02 Active Problem Benign essential HTN I10 Active Problem Osteoarthritis M19.90 Active Problem Paresthesia of skin R20.2 Active Problem Body mass index (BMI) 45.0-49.9, Z68.42 Active adult Medications No Known Medications Results No Known Results Summary Purpose eClinicalWorks Submission
--- OUTSIDE RECORDS SUMMARY | 2020-01-26 10:05 | XMS REPORT ---
[...] index (BMI) 45.0-49.9, Z68.42 Active adult Medications Medication Code System Code Instructions Start End Date Status Dos age Date Macrobid [facility] [id number] 100 MG Orally November 29December 04, Active 1 capsule twice a day 2019 2019 Results No Known Results Summary Purpose eClinicalWorks Submission
--- OUTSIDE RECORDS SUMMARY | 2020-01-26 10:05 | XMS REPORT ---
:1955 Author Organization [facility] t Address [address] [place] [address] [address] [place] [address] Care Team Providers Name Role Phone Unavailable Unavailable Unavailable Problems Condition Condition Condition Status Onset Resolution Last Treating Co mments Source Name Details Category Date Date Treatment Clinician Date Osteoarthr Osteoarthr Problem Active [facility] Benign Benign Problem Active [facility] essential essential [facility] s - HTN HTN [facility] Tubular Tubular Problem Active [facility] adenoma of adenoma of [place] kes - colon colon [facility] l [facility] Body mass Body mass Problem Active [facility] index index [facility] - (BMI) (BMI) Memoria 45.0-49.9, 45.0-49.9, l adult adult [facility] Osteoarthr Osteoarthr Problem Active [facility] itis of itis of [facility] - multiple multiple Memori a joints joints l [facility] Paresthesi Paresthesi Problem Active [facility] a of skin a of skin [facility] - [facility] Bilateral Bilateral Problem Active [facility] carpal carpal [facility] - tunnel tunnel [facility]oria syndrome syndrome l [facility] Carpal Carpal Problem Active [facility] tunnel tunnel [facility] - syndrome syndrome Memori a of left of left l wrist wrist [facility] Allergies, Adverse Reactions, Alerts This patient has no known allergies or adverse reactions. Social History Social Habit Start Date Stop Date Quantity Comments Source Social History 2018-12-28 2018-12-28 Rosemarie vera 04:59:59 04:59:59 [facility] Medications Ordered Filled Start Stop Current Ordering Indication Dosage Frequency Signature Comments Components Source Medication Medication Date Date Medication? Clinician (SIG) Name Name Macrobid Macrobid 2020- Yes Nirav [address] [facility] 3-28 04-02 [facility] - 00:00: 00:00 Memoria 00 :00 [facility] Immunizations Ordered Filled Immunization Date Status Comments Sour e Immunization Name Name TDAP > 7 TDAP > 7 2018-06-[address] [facility] - Years-Adacel Years-Adacel 00:00:00 [facility] Procedures This patient has no known procedures. Encounters Start End Encounter Admission Attending Care Care Encounter Source Date/Time Date/Time Type Type Clinicians Facility Department ID 2020-01-20 2020-01-20 [facility] [id number] [facility] 08:41:00 08:41:00 t [email or web address] [facility] ent [facility] 2019-11-30 2019-11-30 [facility] [id number] [address] 08:05:00 08:05:00 t [facility] ent [facility] 2019-11-25 2019-11-25 [facility] [id number] [facility] 08:15:00 08:15:00 t [facility] ent [facility] 2019-09-12 2019-09-12 [facility] [id number] [address] 15:30:00 15:30:00 t [facility] - [facility] 2019-08-21 2019-08-21 [facility] [id number] [address] 08:00:00 08:00:00 t [facility] ent [facility] 2019-08-14 2019-08-14 [facility] [id number] [facility] 16:55:00 16:55:00 t [facility] ent [facility] 2019-08-12 2019-08-12 [facility] [id number] [address] 14:30:00 14:30:00 t [facility] 2019-07-25 2019-07-25 [facility] [id number] [facility] 16:08:00 16:08:00 t [facility] Clin[facility] 2019-07-25 2019-07-25 [facility] [id number] [facility] 15:30:00 15:30:00 t [facility] 2019-07-25 2019-07-25 [facility] [id number] 15:19:00 15:19:00 t [facility] 2019-07-04 2019-07-04 [facility] [id number] 08:00:00 08:00:00 t [facility] 2019-06-20 2019-06-20 [facility] [id number] 09:30:00 09:30:00 t [facility] ent [facility] 2019-06-11 2019-06-11 [facility] [id number] [address] 13:30:00 13:30:00 t [facility] 2019-06-11 2019-06-11 [facility] [id number] 08:58:00 08:58:00 t [facility] ent [facility] 2019-06-06 2019-06-06 [facility] [id number] 11:51:00 11:51:00 t [facility] 2019-06-06 2019-06-06 [facility] [id number] 09:49:00 09:49:00 t [facility] 2019-06-06 2019-06-06 [facility] [id number] 09:48:00 09:48:00 t [facility] 2019-05-31 2019-05-31 [facility] [id number] 10:10:00 10:10:00 t [facility] Active Circle [facility] 2019-05-30 2019-05-30 [facility] [id number] 10:30:00 10:30:00 t [facility] 2019-05-16 2019-05-16 [facility] [id number] 08:15:00 08:15:00 t [employer] [facility] 2019-05-09 2019-05-09 [facility] [id number] 10:15:00 10:15:00 [facility] 2019-03-19 2019-03-19 [facility] [id number] 13:30:00 13:30:00 t [facility] 2019-02-13 2019-02-13 [facility] [id number] 16:10:00 16:10:00 t [facility] 2018-12-26 2018-12-28 Outside [facility]IEALT MNA [id number] [facility] 16:19:00 04:59:59 Medical Neurology 00 Neur o Records Randy 2018-12-26 2018-12-27 Outpatient MHMISCHER MHMISCHER [id number] 11:19:00 23:59:59 00 2018-12-26 2018-12-27 Outpatient MHMISCHER MHMISCHER [id number] 11:19:00 23:59:59 00 2018-11-16 2018-11-16 [facility] [id number] 07:10:00 07:10:00 t Seriously [facility] Outpat[facility] ent Clinics 2018-11-14 2018-11-14 Outpatient MHIEALT MHIEALT [id number] [facility] 16:00:00 16:00:00 00 graeme Zaid 2018-06-05 2018-06-05 [facility] [id number] 08:15:00 08:15:00 t Seriously [facility] Outpati ent Clinics 2018-04-17 2018-04-17 [facility] [id number] 09:45:00 09:45:00 t Seriously [facility] Outpati ent Clinics 2018-03-05 2018-03-05 [facility] [id number] 09:30:00 09:30:00 t Seriously [facility] Results This patient has no known results.
--- OUTSIDE RECORDS SUMMARY | 2020-01-26 10:05 | XMS REPORT ---
:1955 Author Organization eClinicalWorks Care Team Providers Name Role Phone CarltonBrandth Provider Role Unavailable Allergies, Adverse Reactions, Alerts Substance Reaction Event Type N.K.D.A. Info Not Available Non Drug Allergy Problems Problem Type Condition Code Onset Dates Condition Statu s Problem BMI 45.0-49.9, adult Z68.42 Active Problem Tubular adenoma of colon D12.6 Act eben Problem Benign essential hypertension I10 Active Problem Carpal tunnel syndrome, left G56.02 Active Assessment Body mass index (BMI) 45.0-49.9, Z68.42 Active adult Problem Bilateral carpal tunnel syndrome G56.03 Active Problem Carpal tunnel syndrome of left wrist G56.02 Active Problem Benign essential HTN I10 Active Problem Osteoarthritis M19.90 Active Problem Paresthesia of skin R20.2 Active Problem Body mass index (BMI) 45.0-49.9, Z68.42 Active adult Assessment Tubular adenoma of colon D12.6 Act eben Assessment Carpal tunnel syndrome, left G56.02 Active Assessment Osteoarthritis M19.90 Active Assessment Prediabetes R73.03 Active Assessment Screening mammogram, encounter for Z12.31 Active Assessment Well adult health check Z00.00 Acti ve Assessment Carpal tunnel syndrome of left wrist G56.02 Active Assessment Benign essential HTN I10 Active Problem Osteoarthritis of multiple joints M15.9 Active Medications Medication Code Code Instructions Start End Status Dosage System Date Date Tylenol # 3 NDC 0 300/30mg PO Q6H Active one tab as needed for pain Lisinopril-Hyd NDC 01399842141 20-12.5 MG Active 1 tablet rochlorothiazi Orally TWICE a de day Gabapentin NDC 29814198291 100 MG Orally Active 1 c apsule Once a day Tramadol HCl NDC 47948038959 50 MG Orally November 24, Active 1 tablet Once a day PRN 2019 as needed SEVERE PAIN Results No Known Results Summary Purpose eClinicalWorks Submission
[2020-01-26] MEDS ORDERED: FENTANYL CITR 100 MCG/2 ML ONE (10:30)
[2020-01-26] MEDS ORDERED: ONDANSETRON 4 MG/2 ML VIAL ONE (10:30)
[2020-01-26] MEDS ORDERED: NA CHLORIDE 0.9% 1,000 ML ONE (10:31)
[2020-01-26 10:39] LABS: Absolute Lymphocytes (CBC) 2.2 K/uL (0.7-4.9); Basophils % 1.2 % (0-1.3); Hematocrit 36.6 % (36.0-45.0); Lymphocytes % 39.8 % (15.3-44.8)
[2020-01-26 10:52] LABS: Albumin 3.3 g/dL (3.4-5.0); Bilirubin Direct 0.1 mg/dL (0-0.2); Bilirubin Total 0.5 mg/dL (0.2-1.0); Potassium 3.9 mmol/L (3.5-5.1)
--- NOTE | 2020-01-26 11:21 | RAD REPORT ---
EXAM DESCRIPTION: CT - Abdomen Pelvis W Contrast - 01/26/2020 11:09 am CLINICAL HISTORY: FLANK PAIN COMPARISON: No comparisons TECHNIQUE: Biphasic, helical CT imaging of the abdomen and pelvis was performed following 100 ml non -ionic IV contrast. No oral contrast given. All CT scans are performed using dose optimization technique as appropriate and may include automated exposure control or mA/KV adjustment according to patient size. FINDINGS: No suspicious findings in the lung bases. The liver, spleen, and pancreas show no suspicious findings. Cholecystectomy clips are present. No bi liary tree dilatation. Symmetric renal function is seen with no hydronephrosis or suspicious renal mass. No pyelonephritis o r acute parenchymal process. No bladder abnormalities. No adrenal abnormalities. No uterus or ovarian abnormality is identified. No dilated bowel loops or bowel wall thickening. Appendix is normal. No free air, free fluid or infla mmatory stranding. No hernia, mass or bulky lymphadenopathy. No acute bone finding identifiable. Slight wedging is seen in the T8-T12 vertebrae. No acute findings seen on the CT study. Patient has prominent facet joint degenerative change at L all 5-S1. L4 pars d efects are present without subluxation. IMPRESSION: No obstructing calculus, pyelonephritis or acute finding. No appendicitis or acute GI process. No CAR FRAMER abnormality seen. Patient is status post cholecystectomy with no abnormal biliary tree dilatation.
--- NOTE | 2020-01-26 12:00 | ER ---
Nurse's Notes [facility] Name: Misty Garrett Age: 64 yrs Sex: Female : 1955 Arrival Date: 01/26/2020 Time: 10:05 Bed 5 Private MD: Nirav Carlton Diagnosis: Urinary tract infection, site not specified Presentation: 01/25 10:11 Chief complaint: Right flank pain that radiates to right groin and difficulty urinating hb x 2-3 days. Denies blood in urine or fever. Coronavirus screen: Proceed with normal triage. Ebola Screen: No symptoms or risks identified at this time. Initial Sepsis Screen: Does the patient meet any 2 criteria? No. Patient's initial sepsis screen is negative. Does the patient have a suspected source of infection? No. Patient's initial sepsis screen is negative. Risk Assessment: Do you want to hurt yourself or someone else? Patient reports no desire to harm self or others. Onset of symptoms was January 24, 2020. 10:11 Method Of Arrival: Wheelchair hb 10:11 Acuity: SCAR 3 hb Historical: - Allergies: 10:13 Morphine; "i get wild, hallucinations"; hb - Home Meds: 10:13 lisinopril-hydrochlorothiazide 20-12.5 mg Oral tab 1 tab once daily [Active]; hb - PMHx: 10:13 Hypertension; hb - PSHx: 10:13 Cholecystectomy; Knee surgery; hb - Immunization history:: Adult Immunizations up to date. - Social history:: Smoking status: Patient denies any tobacco usage or history of. Screenin:19 Abuse screen: Denies threats or abuse. Nutritional screening: No deficits noted. em Tuberculosis screening: No symptoms or risk factors identified. Fall Risk None identified. Assessment: 10:20 General: Appears in no apparent distress. uncomfortable, Behavior is calm, cooperative, em appropriate for age. Pain: Complains of pain in right low back and pelvis Pain currently is 9 out of 10 on a pain scale. Neuro: Level of Consciousness is awake, alert, obeys commands, Oriented to person, place, time, situation, Appropriate for age. Cardiovascular: Capillary refill < 3 seconds Patient's skin is warm and dry. Respiratory: Airway is patent Respiratory effort is even, unlabored, Respiratory pattern is regular, symmetrical. GI: Abdomen is round non-distended, Reports nausea, Patient currently denies vomiting. : Reports burning with urination. Derm: Skin is intact, is healthy with good turgor, Skin is pink, warm \\T\\ dry. Musculoskeletal: Capillary refill < 3 seconds, Range of motion: intact in all extremities. 11:00 Reassessment: Patient appears in no apparent distress at this time. Patient and/or em family updated on plan of care and expected duration. Pain level reassessed. Patient is alert, oriented x 3, equal unlabored respirations, skin warm/dry/pink. 11:50 Reassessment: ambulated to the restroom, tolerated well with steady gait Patient denies em pain at this time. Patient states feeling better. Vital Signs: 10:11 BP 150 / 80; Pulse 78; Resp 16; Temp 97.4; Pulse Ox 100% on R/A; Weight 110.22 kg; hb Height 5 ft. 1 in. (154.94 cm); Pain 9/10; 11:00 BP 147 / 82; Pulse 66; Resp 18; Pulse Ox 97% on R/A; em 12:00 BP 137 / 67; Pulse 67; Resp 16; Pulse Ox 96% on R/A; Pain 0/10; em 10:11 Body Mass Index 45.91 (110.22 kg, 154.94 cm) hb ED Course: 10:05 Patient arrived in ED. am2 10:05 Nirav Carlton DO is Private Physician. am2 10:13 Triage completed. hb 10:13 Arm band placed on. hb 10:14 Joce Bradley NP is PHCP. pm1 10:14 Rajesh Blue MD is Attending Physician. pm1 10:18 Reno Sharma, AN is Primary Nurse. em 10:25 Patient has correct armband on for positive identification. Bed in low position. Call em light in reach. Side rails up X2. Pulse ox on. NIBP on. Warm blanket given. 10:26 Initial lab(s) drawn, by me, sent to lab. Inserted saline lock: 20 gauge in left em antecubital area, using aseptic technique. Blood collected. 11:10 CT completed. Patient tolerated procedure well. Patient moved back from CT. bq 11:12 CT Abd/Pelvis - IV Contrast Only In Process Unspecified. EDMS 13:01 No provider procedures requiring assistance completed. IV discontinued, intact, em bleeding controlled, No redness/swelling at site. Pressure dressing applied. Administered Medications: 10: Drug: Zofran (Ondansetron) 4 mg Route: IVP; Site: left antecubital; em 11:00 Follow up: Response: No adverse reaction; Marked relief of symptoms; Nausea is decreasedem 10: Drug: NS 0.9% 1000 ml Route: IV; Rate: 1000 ml; Site: left antecubital; em 12:04 Follow up: IV Status: Completed infusion; IV Intake: 1000ml em 10:28 Drug: fentaNYL (PF) 50 mcg Route: IVP; Site: left antecubital; em 11:00 Follow up: Response: No adverse reaction; Marked relief of symptoms; Pain is decreased; em RASS: Drowsy (-1) 12:00 Drug: Rocephin 1 grams Route: IV; Rate: calculated rate; Site: left antecubital; em 12:59 Follow up: Response: No adverse reaction; IV Status: Completed infusion; IV Intake: 10mlem Intake: 12:04 IV: 1000ml; Total: 1000ml. em 12:59 IV: 10ml; Total: 1010ml. em Outcome: 11:59 Discharge ordered by . pm1 13:01 Discharged to home ambulatory. em 13:01 Condition: good 13:01 Discharge instructions given to patient, Instructed on discharge instructions, follow up and referral plans. no drinking with medication, no driving heavy equipment, medication usage, Demonstrated understanding of instructions, follow-up care, medications, Prescriptions given X 3. 13:03 Patient left the ED. em Signatures: Dispatcher [employer] EDAllyson Granados Edgar RN RN em Joce Bradley, MARY FUR MIXER pm1 Melisa Richards RN RN hb Moreno, Amanda am2
--- NOTE | 2020-01-26 12:00 | EDPHYS ---
Physician Documentation [facility] Name: Misty Garrett Age: 64 yrs Sex: Female : 1955 Arrival Date: 01/26/2020 Time: 10:05 Bed 5 Private MD: Nirav Carlton ED Physician Rajesh Blue HPI: 01/25 10:26 This 64 yrs old Female presents to ER via Wheelchair with complaints of Back pm1 Pain, Abdominal Pain. 10:26 The patient presents with pain that is acute, reports possibly injured at work on pm1 Monday. 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 The symptoms are located in the right low back. Onset: The symptoms/episode began/occurred yesterday. Pain radiation to right groin. Associated signs and symptoms: Pertinent positives: dysuria, nausea, urinary frequency, Pertinent negatives: abdominal pain, chest pain, constipation, fever, vomiting, weakness, Diarrhea. Modifying factors: The patient symptoms are alleviated by nothing, the patient symptoms are aggravated by movement. Severity of symptoms: in the emergency department the symptoms are actually worse. The patient has not experienced similar symptoms in the past. It is unknown whether or not the patient has recently seen a physician. Historical: - Allergies: 10:13 Morphine; "i get wild, hallucinations"; hb - Home Meds: 10:13 lisinopril-hydrochlorothiazide 20-12.5 mg Oral tab 1 tab once daily [Active]; hb - PMHx: 10:13 Hypertension; hb - PSHx: 10:13 Cholecystectomy; Knee surgery; hb - Immunization history:: Adult Immunizations up to date. - Social history:: Smoking status: Patient denies any tobacco usage or history of. ROS: 10:26 Constitutional: Negative for fever, chills, and weight loss, Neck: Negative for injury, pm1 pain, and swelling, Cardiovascular: Negative for chest pain, palpitations, and edema, Respiratory: Negative for shortness of breath, cough, wheezing, and pleuritic chest pain. 10:26 MS/Extremity: Negative for injury and deformity, Skin: Negative for injury, rash, and discoloration, Neuro: Negative for headache, weakness, numbness, tingling, and seizure. 10:26 Abdomen/GI: Positive for abdominal pain, nausea, right groin area, Negative for vomiting, diarrhea, constipation. 10:26 Back: Positive for flank pain, on the right. 10:26 : Positive for urinary frequency. Exam: 10:26 Constitutional: This is a well developed, well nourished patient who is awake, alert, pm1 and in no acute distress. Head/Face: Normocephalic, atraumatic. Neck: Trachea midline, no thyromegaly or masses palpated, and no cervical lymphadenopathy. Supple, full range of motion without nuchal rigidity, or vertebral point tenderness. No Meningismus. Chest/axilla: Normal chest wall appearance and motion. Nontender with no deformity. No lesions are appreciated. 10:26 Skin: Warm, dry with normal turgor. Normal color with no rashes, no lesions, and no evidence of cellulitis. MS/ Extremity: Pulses equal, no cyanosis. Neurovascular intact. Full, normal range of motion. 10:26 Cardiovascular: Exam negative for acute changes, Rate: normal, Rhythm: regular, Pulses: no pulse deficits are appreciated. 10:26 Respiratory: Exam negative for acute changes, respiratory distress, shortness of breath. 10:26 Abdomen/GI: Inspection: obese Palpation: abdomen is soft and non-tender, in all quadrants, mass, is not appreciated, rebound tenderness, is not appreciated, Indicators: McBurney's point is not tender, Betancourt's sign is negative, Rovsing's sign is negative. 10:26 Back: pain, that is moderate, of the right low back, normal spinal alignment noted. 10:26 Neuro: Exam negative for acute changes, Orientation: is normal, Mentation: is normal, Motor: is normal, moves all fours, Sensation: is normal, no obvious gross deficits. Vital Signs: 10:11 BP 150 / 80; Pulse 78; Resp 16; Temp 97.4; Pulse Ox 100% on R/A; Weight 110.22 kg; hb Height 5 ft. 1 in. (154.94 cm); Pain 9/10; 11:00 BP 147 / 82; Pulse 66; Resp 18; Pulse Ox 97% on R/A; em 12:00 BP 137 / 67; Pulse 67; Resp 16; Pulse Ox 96% on R/A; Pain 0/10; em 10:11 Body Mass Index 45.91 (110.22 kg, 154.94 cm) hb MDM: 10:17 Patient medically screened. pm1 11:58 Data reviewed: vital signs. Data interpreted: Pulse oximetry: on room air is 100 %. pm1 Interpretation: normal. Counseling: I had a detailed discussion with the patient and/or guardian regarding: the historical points, exam findings, and any diagnostic results supporting the discharge/admit diagnosis, lab results, radiology results, the need for outpatient follow up, to return to the emergency department if symptoms worsen or persist or if there are any questions or concerns that arise at home. 01/25 10:21 Order name: Basic Metabolic Panel; Complete Time: 11:02 pm1 01/25 10:21 Order name: CBC with Diff; Complete Time: 11:02 pm1 01/25 10:21 Order name: Hepatic Function; Complete Time: 11:02 pm1 01/25 10:21 Order name: Lipase; Complete Time: 11:02 pm1 01/25 10:21 Order name: Urine Microscopic Only; Complete Time: 12:17 pm1 01/25 11:45 Order name: CREATININE WHOLE BLOOD; Complete Time: 11:46 ED[facility] 01/25 10:21 Order name: IV Saline Lock; Complete Time: 10:35 pm1 01/25 10:21 Order name: CT Abd/Pelvis - IV Contrast Only; Complete Time: 11:30 pm1 01/25 11:58 Order name: Urine Dipstick--Ancillary (enter results); Complete Time: 12:51 hb 01/25 12:15 Order name: Urine Culture [facility] 01/25 10:21 Order name: Labs collected and sent; Complete Time: 10:35 pm1 01/25 10:21 Order name: Urine Dipstick-Ancillary (obtain specimen); Complete Time: 11:57 pm1 Administered Medications: 10: Drug: Zofran (Ondansetron) 4 mg Route: IVP; Site: left antecubital; em 11:00 Follow up: Response: No adverse reaction; Marked relief of symptoms; Nausea is decreasedem 10: Drug: NS 0.9% 1000 ml Route: IV; Rate: 1000 ml; Site: left antecubital; em 12:04 Follow up: IV Status: Completed infusion; IV Intake: 1000ml em 10:28 Drug: fentaNYL (PF) 50 mcg Route: IVP; Site: left antecubital; em 11:00 Follow up: Response: No adverse reaction; Marked relief of symptoms; Pain is decreased; em RASS: Drowsy (-1) 12:00 Drug: Rocephin 1 grams Route: IV; Rate: calculated rate; Site: left antecubital; em 12:59 Follow up: Response: No adverse reaction; IV Status: Completed infusion; IV Intake: 10mlem Disposition: 01/26/20 11:59 Discharged to Home. Impression: Urinary tract infection, site not specified. - Condition is Stable. - Discharge Instructions: Urinary Tract Infection, Adult. - Prescriptions for Macrobid 100 mg Oral Capsule - take 1 capsule by ORAL route every 12 hours for 10 days; 20 capsule. Zofran 4 mg Oral Tablet - take 1 tablet by ORAL route every 12 hours As needed; 20 tablet. Tylenol- Codeine #3 300-30 mg Oral Tablet - take 2 tablets by ORAL route every 6 hours As needed; 20 tablet. - Work release form, Medication Reconciliation Form, Thank You Letter, Antibiotic Education, Prescription Opioid Use form. - Follow up: Emergency Department; When: As needed; Reason: Worsening of condition. Follow up: Private Physician; When: 2 - 3 days; Reason: Recheck today's complaints, Continuance of care, Re-evaluation by your physician. - Problem is new. - Symptoms have improved. Signatures: Dispatcher [employer] Reno Mitchell RN RN em Joce Bradley, MARY MACHINE PULLER pm1 Melisa Richards RN RN Corrections: (The following items were deleted from the chart) 13:03 11:59 01/26/2020 11:59 Discharged to Home. Impression: Urinary tract infection, site em not specified. Condition is Stable. Forms are Medication Reconciliation Form, Thank You Letter, Antibiotic Education, Prescription Opioid Use. Follow up: Emergency Department; When: As needed; Reason: Worsening of condition. Follow up: Private Physician; When: 2 - 3 days; Reason: Recheck today's complaints, Continuance of care, Re-evaluation by your physician. Problem is new. Symptoms have improved. pm1
[2020-01-26] MEDS ORDERED: CEFTRIAXONE/SWI 1gm 1 GM/10 ML SYR ONE (12:06)
[2020-01-26 12:13] LABS: Urine Bacteria 20-50 /HPF (<20); Urine Culture Reflex Order REFLEXED; Urine RBC <5 /HPF (NONE SEEN)
[2020-01-26 12:35] LABS: Urine Blood TRACE (NEG); Urine Glucose NEGATIVE (NEG); Urine Protein NEGATIVE (NEG); Urine pH 5.5 (5.0-7.0)
[2020-01-26 13:10] VITALS: TEMP 97.4
[2020-01-26 13:13] VITALS: BP 137/67; O2SAT 96
== END 2020-01-26 13:03 | disposition home or self-care (01) ==
LOC: ER 10:01
DX: N39.0 Urinary tract infection, site not specified (principal); I10 Essential (primary) hypertension
CPT/HCPCS: 96365; 96361; 87088; 85025; 87086; 80048; 36415; 82565; 80076; 87077; 87186; 83690; 74177; 96375; 99284; Q9967; J3010; J0696; J7030; J2405; 81003; 81015

== ENCOUNTER 2020-10-17 07:26 | Emergency (ER) | payer OTHER ==
[2020-10-17] MEDS ORDERED: AZITHROMYCIN 500 MG/250 ML BAG IV SCH (08:30)
[2020-10-17] MEDS ORDERED: ACETAMINOPHEN 500 MG TAB ONE (08:33)
[2020-10-17] MEDS ORDERED: FAMOTIDINE 20 MG/2 ML VIAL IV ONE (08:33)
[2020-10-17] MEDS ORDERED: NA CHLORIDE 0.9% 1,000 ML ONE (08:33)
[2020-10-17] MEDS ORDERED: CEFTRIAXONE/SWI 1gm 1 GM/10 ML SYR ONE (08:33)
[2020-10-17 09:19] LABS: Absolute Lymphocytes (CBC) 0.5 K/uL (0.7-4.9); Hematocrit 37.4 % (36.0-45.0); Lymphocytes % 10.8 % (15.3-44.8); MPV 7.9 fL (7.6-11.3); Protime INR 0.96; RBC Red Blood Cell Count 4.11 M/uL (3.86-4.86)
[2020-10-17 09:57] LABS: ALT/SGPT 21 U/L (12-78); AST/SGOT 18 U/L (15-37); Albumin 3.3 g/dL (3.4-5.0); Alkaline Phosphatase 87 U/L (45-117); BUN Blood Urea Nitrogen 14 mg/dL (7-18); Bicarbonate 27 mmol/L (21-32); Bilirubin Direct 0.1 mg/dL (0-0.2); Bilirubin Total 0.3 mg/dL (0.2-1.0); Glucose Level 93 mg/dL (74-106); Magnesium 1.8 mg/dL (1.8-2.4); NT PRO-BNP 223 pg/mL (<125); Potassium 3.8 mmol/L (3.5-5.1); Protein, Total 7.2 g/dL (6.4-8.2); Sodium Level 140 mmol/L (136-145); Troponin (Emerg Dept Use Only) < 0.02 ng/mL (0.0-0.045)
[2020-10-17 10:32] LABS: SARS-COV-2 RT PCR POSITIVE (NEGATIVE)
[2020-10-17] MEDS ORDERED: dexAMETHasone 10 MG/ML VIAL ONE (10:39)
--- NOTE | 2020-10-17 10:39 | ER ---
Nurse's Notes [facility] Name: Misty Garrett Age: 65 yrs Sex: Female : 1955 Arrival Date: 10/17/2020 Time: 07:31 Bed 6 Private MD: Nirav Carlton Diagnosis: Cough;Fever, unspecified;Acute upper respiratory infection, unspecified;SARS-associated coronavirus as the cause of diseases classified elsewhere-covid 19 positive;Headache Presentation: 10/17 07:41 Chief complaint: Patient states: Cough, headache, bilateral ear pain, nausea, diarrhea, ph TMAX 100.1, symptoms began on Monday. Coronavirus screen: Client denies travel out of the [place] in the last 14 days. cough unrelated to allergies, diarrhea, fever, headache, nausea. Ebola Screen: No symptoms or risks identified at this time. Initial Sepsis Screen: Does the patient meet any 2 criteria? No. Patient's initial sepsis screen is negative. Does the patient have a suspected source of infection? Yes: Productive cough/pneumonia. Risk Assessment: Do you want to hurt yourself or someone else? Patient reports no desire to harm self or others. Onset of symptoms was October 17, 2020. 07:41 Method Of Arrival: Ambulatory ph 07:41 Acuity: SCAR 3 ph Triage Assessment: 07:45 Headache History: The patient has had previous headaches. General: Appears in no ph apparent distress. uncomfortable, Behavior is calm, cooperative, appropriate for age, Reports fever for 1-2 days. Pain: Complains of pain in head. EENT: Reports pain in left ear and right ear. Neuro: Level of Consciousness is awake, alert, obeys commands, Oriented to person, place, time, situation, Reports headache. Cardiovascular: Capillary refill < 3 seconds in bilateral fingers Patient's skin is warm and dry. Respiratory: Reports cough that is persistent pain with cough Airway is patent Respiratory effort is even, unlabored, Respiratory pattern is regular, symmetrical. GI: Reports diarrhea, nausea, Patient currently denies abdominal pain, vomiting. Derm: Skin is intact, is healthy with good turgor, Skin is pink, warm \\T\\ dry. Musculoskeletal: Circulation, motion, and sensation intact. Range of motion: intact in all extremities. Historical: - Allergies: 07:45 Morphine; "i get wild, hallucinations"; ph - Home Meds: 07:45 lisinopril-hydrochlorothiazide 20-12.5 mg Oral tab 1 tab once daily [Active]; ph - PMHx: 07:45 Hypertension; ph - PSHx: 07:45 Cholecystectomy; Knee surgery; ph - Immunization history:: Flu vaccine is up to date. - Social history:: Smoking status: Patient denies any tobacco usage or history of. Screenin:41 Abuse screen: Denies threats or abuse. Denies injuries from another. Nutritional sv screening: No deficits noted. Tuberculosis screening: No symptoms or risk factors identified. Fall Risk None identified. Assessment: 09:00 Reassessment: Patient appears in no apparent distress at this time. Patient and/or ph family updated on plan of care and expected duration. Pain level reassessed. Patient is alert, oriented x 3, equal unlabored respirations, skin warm/dry/pink. 10:42 Reassessment: Patient appears in no apparent distress at this time. Patient and/or ph family updated on plan of care and expected duration. Pain level reassessed. Patient is alert, oriented x 3, equal unlabored respirations, skin warm/dry/pink. D/C pending completion of IV antibiotics. 12:03 Reassessment: Patient appears in no apparent distress at this time. Patient and/or ph family updated on plan of care and expected duration. Pain level reassessed. Patient is alert, oriented x 3, equal unlabored respirations, skin warm/dry/pink. Pt reports that headache has resolved, d/c home w/ prescriptions, instructed to return to ED for worsening symptoms. Vital Signs: 07:41 BP 151 / 88; Pulse 93; Resp 20; Temp 100.1; Pulse Ox 99% on R/A; Weight 110.22 kg; ph Height 5 ft. 1 in. (154.94 cm); 10:00 BP 131 / 72; Pulse 66; Resp 20; Pulse Ox 100% ; sv 11:03 BP 139 / 73; Pulse 75; Resp 18; Temp 98.1; Pulse Ox 99% on R/A; ph 12:03 BP 132 / 76; Pulse 78; Resp 18; Temp 98.0; Pulse Ox 99% on R/A; ph 07:41 Body Mass Index 45.91 (110.22 kg, 154.94 cm) ph [place] Coma Score: 09:22 Eye Response: spontaneous(4). Verbal Response: oriented(5). Motor Response: obeys melissa commands(6). Total: 15. ED Course: 07:31 Patient arrived in ED. mr 07:31 Nirav Carlton DO is Private Physician. mr 07:33 Navid Garcia MD is Attending Physician. melissa 07:41 Patient has correct armband on for positive identification. Bed in low position. Call sv light in reach. Pulse ox on. NIBP on. Door closed. Head of bed elevated. 07:41 Arm band placed on Patient placed in an exam room, on a stretcher. sv 07:45 Triage completed. ph 08:12 Aliya Jaquez, RN is Primary Nurse. ph 08:25 XRAY Chest (1 view) In Process Unspecified. EDMS 09:21 Inserted saline lock: 20 gauge in right antecubital area, using aseptic technique. hb 10:22 LFT's Sent. sv 10:22 CBC with Diff Sent. sv 10:22 Basic Metabolic Panel Sent. sv 10:38 Nirav Carlton DO is Referral Physician. melissa 11:20 EKG done, by ED staff, reviewed by Navid Garcia MD. 3 12:00 No provider procedures requiring assistance completed. IV discontinued, intact, ph bleeding controlled, No redness/swelling at site. Pressure dressing applied. Administered Medications: 08:30 Drug: Tylenol 1000 mg Route: PO; ph 09:15 Follow up: Response: No adverse reaction; Temperature is decreased; Pain is decreased ph 08:40 Drug: Pepcid 20 mg Route: IVP; Site: left antecubital; ph 09:00 Follow up: Response: No adverse reaction ph 09:30 Drug: NS 0.9% 1000 ml Route: IV; Rate: 1 bolus; Site: right antecubital; ph 11:00 Follow up: Response: No adverse reaction; IV Status: Completed infusion; IV Intake: ph 1000ml 09:30 Drug: Rocephin 1 grams Route: IV; Rate: per protocol; Site: right antecubital; ph 09:45 Follow up: Response: No adverse reaction; IV Status: Completed infusion ph 10:15 Drug: Zithromax 500 mg Route: IVPB; Infused Over: 1 hrs; Site: right antecubital; ph 11:35 Follow up: Response: No adverse reaction; IV Status: Completed infusion; IV Intake: ph 250ml 11:36 Follow up: Response: No adverse reaction; IV Status: Completed infusion; IV Intake: sv 250ml 10:42 Drug: Decadron - Dexamethasone 10 mg Route: IVP; Site: right antecubital; ph 12:05 Follow up: Response: No adverse reaction ph Intake: 11:00 IV: 1000ml; Total: 1000ml. ph 11:35 IV: 250ml; Total: 1250ml. ph 11:36 IV: 250ml; Total: 1500ml. sv Outcome: 10:39 Discharge ordered by . melissa 12:02 Patient left the ED. ph 12:02 Discharged to home ambulatory. ph 12:02 Condition: good 12:02 Discharge instructions given to patient, Instructed on discharge instructions, follow up and referral plans. medication usage, Demonstrated understanding of instructions, follow-up care, medications, Prescriptions given X 5 Signatures: Dispatcher [employer] Denita Moulton RN RN sv Anderson, Corey, MD MD cha Rivera, Mary mr Hall, Patricia, RN RN Melisa Richards RN RN Darline Buck [facility]
--- NOTE | 2020-10-17 10:39 | EDPHYS ---
Physician Documentation [facility] Name: Misty Garrett Age: 65 yrs Sex: Female : 1955 Arrival Date: 10/17/2020 Time: 07:31 Bed 6 Private MD: [facility] ED Physician Navid Garcia HPI: 10/17 09:18 This 65 yrs old Female presents to ER via Ambulatory with complaints of Cough, melissa Headache. 09:18 The patient or guardian reports airway noise, cough, described as mild, difficulty melissa breathing, flu symptoms, arthralgias, low-grade fever, myalgias, no appetite. Historical: - Allergies: 07:45 Morphine; "i get wild, hallucinations"; ph - Home Meds: 07:45 lisinopril-hydrochlorothiazide 20-12.5 mg Oral tab 1 tab once daily [Active]; ph - PMHx: 07:45 Hypertension; ph - PSHx: 07:45 Cholecystectomy; Knee surgery; ph - Immunization history:: Flu vaccine is up to date. - Social history:: Smoking status: Patient denies any tobacco usage or history of. ROS: 09:19 Eyes: Negative for injury, pain, redness, and discharge, ENT: Negative for injury, melissa pain, and discharge, Neck: Negative for injury, pain, and swelling, Cardiovascular: Negative for chest pain, palpitations, and edema, Abdomen/GI: Negative for abdominal pain, nausea, vomiting, diarrhea, and constipation, Back: Negative for injury and pain, : Negative for injury, bleeding, discharge, and swelling, MS/Extremity: Negative for injury and deformity, Skin: Negative for injury, rash, and discoloration, Neuro: Negative for headache, weakness, numbness, tingling, and seizure, Psych: Negative for depression, anxiety, suicide ideation, homicidal ideation, and hallucinations, Allergy/Immunology: Negative for hives, rash, and allergies, Endocrine: Negative for neck swelling, polydipsia, polyuria, polyphagia, and marked weight changes, Hematologic/Lymphatic: Negative for swollen nodes, abnormal bleeding, and unusual bruising. 09:19 Constitutional: Positive for body aches, fatigue, fever, malaise. 09:19 Respiratory: Positive for cough, "sounds productive", shortness of breath, on exertion. Exam: 09:19 Head/Face: Normocephalic, atraumatic. Eyes: Pupils equal round and reactive to light, melissa extra-ocular motions intact. Lids and lashes normal. Conjunctiva and sclera are non-icteric and not injected. Cornea within normal limits. Periorbital areas with no swelling, redness, or edema. ENT: Nares patent. No nasal discharge, no septal abnormalities noted. Tympanic membranes are normal and external auditory canals are clear. Oropharynx with no redness, swelling, or masses, exudates, or evidence of obstruction, uvula midline. Mucous membranes moist. Neck: Trachea midline, no thyromegaly or masses palpated, and no cervical lymphadenopathy. Supple, full range of motion without nuchal rigidity, or vertebral point tenderness. No Meningismus. Chest/axilla: Normal chest wall appearance and motion. Nontender with no deformity. No lesions are appreciated. Cardiovascular: Regular rate and rhythm with a normal S1 and S2. No gallops, murmurs, or rubs. Normal PMI, no JVD. No pulse deficits. Abdomen/GI: Soft, non-tender, with normal bowel sounds. No distension or tympany. No guarding or rebound. No evidence of tenderness throughout. Back: No spinal tenderness. No costovertebral tenderness. Full range of motion. Female : Normal external genitalia. Skin: Warm, dry with normal turgor. Normal color with no rashes, no lesions, and no evidence of cellulitis. MS/ Extremity: Pulses equal, no cyanosis. Neurovascular intact. Full, normal range of motion. Neuro: Awake and alert, GCS 15, oriented to person, place, time, and situation. Cranial nerves II-XII grossly intact. Motor strength 5/5 in all extremities. Sensory grossly intact. Cerebellar exam normal. Normal gait. Psych: Awake, alert, with orientation to person, place and time. Behavior, mood, and affect are within normal limits. 09:19 Constitutional: The patient appears febrile. 09:19 Respiratory: mild respiratory distress is noted, Respirations: labored breathing, is not present, Breath sounds: bronchial sounds, that are mild, are scattered, decreased breath sounds, that are mild, rhonchi, that are mild, are scattered. 11:38 ECG was reviewed by the Attending Physician. [facility] Vital Signs: 07:41 BP 151 / 88; Pulse 93; Resp 20; Temp 100.1; Pulse Ox 99% on R/A; Weight 110.22 kg; ph Height 5 ft. 1 in. (154.94 cm); 10:00 BP 131 / 72; Pulse 66; Resp 20; Pulse Ox 100% ; sv 11:03 BP 139 / 73; Pulse 75; Resp 18; Temp 98.1; Pulse Ox 99% on R/A; ph 12:03 BP 132 / 76; Pulse 78; Resp 18; Temp 98.0; Pulse Ox 99% on R/A; ph 07:41 Body Mass Index 45.91 (110.22 kg, 154.94 cm) ph Brady Coma Score: 09:22 Eye Response: spontaneous(4). Verbal Response: oriented(5). Motor Response: obeys melissa commands(6). Total: 15. MDM: 07:33 Patient medically screened. melissa 09:22 Differential diagnosis: meningitis, migraine, sinusitis. Differential Diagnosis: flu, melissa Bronchitis Influenza Upper Respiratory Infection Pharyngitis Otitis Media Viral Syndrome Pneumonia. Data reviewed: vital signs, nurses notes, lab test result(s), EKG, radiologic studies, plain films. Data interpreted: nuclear monitoring technician: rate is 93 beats/min, rhythm is regular, Pulse oximetry: on room air is 99 %. Test interpretation: by ED physician or midlevel provider: ECG, plain radiologic studies. Counseling: I had a detailed discussion with the patient and/or guardian regarding: the historical points, exam findings, and any diagnostic results supporting the discharge/admit diagnosis, lab results, radiology results, the need for outpatient follow up, for definitive care, an customer sales representative. 10/17 07:56 Order name: Basic Metabolic Panel 10/17 07:56 Order name: CBC with Diff 10/17 07:56 Order name: LFT's 10/17 07:56 Order name: Magnesium; Complete Time: 10:20 10/17 07:56 Order name: NT PRO-BNP; Complete Time: 10:20 melissa 10/17 07:56 Order name: PT-INR; Complete Time: 10:20 [facility] 10/17 07:56 Order name: Troponin (emerg Dept Use Only); Complete Time: 10:20 10/17 07:56 Order name: Blood Culture Adult (2) 10/17 07:56 Order name: Basic Metabolic Panel; Complete Time: 10:20 EDMS 10/17 07:56 Order name: CBC with Automated Diff; Complete Time: 09:36 EDPR 10/17 07:56 Order name: Liver (Hepatic) Function; Complete Time: 10:20 EDMS 10/17 07:56 Order name: XRAY Chest (1 view) melissa 10/17 07:56 Order name: EKG; Complete Time: 07:57 [facility] 10/17 07:56 Order name: Cardiac monitoring; Complete Time: 11:04 [facility] 10/17 07:56 Order name: EKG - Nurse/Tech; Complete Time: 11:04 [facility] 10/17 07:56 Order name: IV Saline Lock; Complete Time: 11:04 [facility] 10/17 07:56 Order name: Labs collected and sent; Complete Time: 11:04 [facility] 10/17 07:56 Order name: O2 Per Protocol; Complete Time: 08:13 [facility] 10/17 07:56 Order name: O2 Sat Monitoring; Complete Time: 08:13 [facility] 10/17 10:33 Order name: COVID-19/FLU A+B; Complete Time: 10:37 [facility] 10/17 09:13 Order name: Labs - recollect needed: green top recollect; Complete Time: 09:14 eb EC:38 Rate is 69 beats/min. Rhythm is regular. QRS [place] is Normal. [place] interval is normal. QRS melissa interval is normal. QT interval is normal. No Q waves. T waves are Normal. No ST changes noted. Clinical impression: No evidence of ischemia. Interpreted by me. Reviewed by me. Administered Medications: 08:30 Drug: Tylenol 1000 mg Route: PO; ph 09:15 Follow up: Response: No adverse reaction; Temperature is decreased; Pain is decreased ph 08:40 Drug: Pepcid 20 mg Route: IVP; Site: left antecubital; ph 09:00 Follow up: Response: No adverse reaction ph 09:30 Drug: NS 0.9% 1000 ml Route: IV; Rate: 1 bolus; Site: right antecubital; ph 11:00 Follow up: Response: No adverse reaction; IV Status: Completed infusion; IV Intake: ph 1000ml 09:30 Drug: Rocephin 1 grams Route: IV; Rate: per protocol; Site: right antecubital; ph 09:45 Follow up: Response: No adverse reaction; IV Status: Completed infusion ph 10:15 Drug: Zithromax 500 mg Route: IVPB; Infused Over: 1 hrs; Site: right antecubital; ph 11:35 Follow up: Response: No adverse reaction; IV Status: Completed infusion; IV Intake: ph 250ml 11:36 Follow up: Response: No adverse reaction; IV Status: Completed infusion; IV Intake: sv 250ml 10:42 Drug: Decadron - Dexamethasone 10 mg Route: IVP; Site: right antecubital; ph 12:05 Follow up: Response: No adverse reaction ph Disposition: 10/17/20 10:39 Discharged to Home. Impression: Cough, Fever, unspecified, Acute upper respiratory infection, unspecified, SARS-associated coronavirus as the cause of diseases classified elsewhere - covid 19 positive, Headache. - Condition is Stable. - Discharge Instructions: Upper Respiratory Infection, Adult, Cool Mist Vaporizer, Cough, Adult, [id number], Aspirin and Your Heart, Cough, Adult, COVID-19. - Prescriptions for dexamethasone 2 mg Oral tablet - take 1 tablet by ORAL route 3 times per day; 15 tablet. Pepcid 20 mg Oral Tablet - take 1 tablet by ORAL route every 12 hours for 15 days; 30 tablet. Albuterol Sulfate 90 mcg/actuation - inhale 1-2 puff by INHALATION route every 4-6 hours; 1 Inhaler. Zithromax 500 mg Oral Tablet - take 1 tablet by ORAL route once daily for 5 days; 5 tablet. ivermectin 3 mg Oral tablet - take 4 tablet by ORAL route as directed x1 dose days 1 and day 3.; 8 tablet. - Medication Reconciliation Form, Thank You Letter, Antibiotic Education, Prescription Opioid Use, Work release form form. - Follow up: Nirav Carlton; When: 2 - 3 days; Reason: Recheck today's complaints, Continuance of care, Re-evaluation by your physician. - Problem is new. - Symptoms have improved. Signatures: Dispatcher [employer] EDMS Navid Garcia MD MD cha Hall, Patricia RN RN ph Tylre, Denita Ojeda RN Corrections: (The following items were deleted from the chart) 09:37 07:57 CORONAVIRUS+MR.LAB.BRZ ordered. EDMS EDMS 09:37 07:57 Influenza Screen (A \\T\\ B)+BA.LAB.BRZ ordered. EDPR EDPR 10:41 10:39 10/17/2020 10:39 Discharged to Home. Impression: Cough; Fever, unspecified; Acute melissa upper respiratory infection, unspecified; SARS-associated coronavirus as the cause of diseases classified elsewhere - covid 19 positive. Condition is Stable. Discharge Instructions: Upper Respiratory Infection, Adult, Cool Mist Vaporizer, Cough, Adult, [id number], Aspirin and Your Heart, Cough, Adult. Prescriptions for dexamethasone 2 mg Oral tablet - take 1 tablet by ORAL route 3 times per day; 15 tablet, Pepcid 20 mg Oral Tablet - take 1 tablet by ORAL route every 12 hours for 15 days; 30 tablet, Albuterol Sulfate 90 mcg/actuation - inhale 1-2 puff by INHALATION route every 4-6 hours; 1 Inhaler, Zithromax 500 mg Oral Tablet - take 1 tablet by ORAL route once daily for 5 days; 5 tablet. and Forms are Medication Reconciliation Form, Thank You Letter, Antibiotic Education, Prescription Opioid Use. Follow up: Nirav Carlton; When: 2 - 3 days; Reason: Recheck today's complaints, Continuance of care, Re-evaluation by your physician. Problem is new. Symptoms have improved. [facility] 12:02 10:41 10/17/2020 10:39 Discharged to Home. Impression: Cough; Fever, unspecified; Acute ph upper respiratory infection, unspecified; SARS-associated coronavirus as the cause of diseases classified elsewhere - covid 19 positive; Headache. Condition is Stable. Discharge Instructions: Upper Respiratory Infection, Adult, Cool Mist Vaporizer, Cough, Adult, [id number], Aspirin and Your Heart, Cough, Adult, COVID-19. Prescriptions for dexamethasone 2 mg Oral tablet - take 1 tablet by ORAL route 3 times per day; 15 tablet, Pepcid 20 mg Oral Tablet - take 1 tablet by ORAL route every 12 hours for 15 days; 30 tablet, Albuterol Sulfate 90 mcg/actuation - inhale 1-2 puff by INHALATION route every 4-6 hours; 1 Inhaler, Zithromax 500 mg Oral Tablet - take 1 tablet by ORAL route once daily for 5 days; 5 tablet, ivermectin 3 mg Oral tablet - take 4 tablet by ORAL route as directed x1 dose days 1 and day 3.; 8 tablet. and Forms are Medication Reconciliation Form, Thank You Letter, Antibiotic Education, Prescription Opioid Use. Follow up: Nirav Carlton; When: 2 - 3 days; Reason: Recheck today's complaints, Continuance of care, Re-evaluation by your physician. Problem is new. Symptoms have improved. melissa
--- NOTE | 2020-10-17 11:51 | RAD REPORT ---
EXAM DESCRIPTION: RAD - Chest Single View - 10/17/2020 8:26 am CLINICAL HISTORY: COUGH Chest pain. COMPARISON: Chest Pa And Lat (2 Views) dated 06/05/2019; Chest Single View dated 05/25/2017 FINDINGS: Portable technique limits examination quality. The lungs are grossly clear. The heart is normal in size. No displaced fractures. IMPRESSION: No acute intrathoracic process suspected.
[2020-10-17 12:09] VITALS: BP 139/73; TEMP 98.1; O2SAT 99
--- NOTE | 2020-10-19 13:16 | EKG ---
Test Date: 2020-10-17 Test Time: 11:16:27 Leather Sponger: MARCUS MEASUREMENT RESULTS: Intervals: Rate: 69 MO: 152 QRSD: 76 QT: 402 QTc: 430 [place]: P: 32 MO: 152 QRS: 60 T: 45 INTERPRETIVE STATEMENTS: Sinus rhythm with occasional premature ventricular complexes Nonspecific ST and T wave abnormality Abnormal ECG Compared to ECG 06/05/2019 09:06:49 Ventricular premature complex(es) now present ST (T wave) deviation now present T-wave abnormality no longer present Electronically Signed On 10-19-20 13:12:46 MACHINE FORMER by Jakub Sanders
== END 2020-10-17 12:02 | disposition home or self-care (01) ==
LOC: ER 07:26
DX: U07.1 COVID-19 (principal); J06.9 Acute upper respiratory infection, unspecified; R51.9 Headache, unspecified; I10 Essential (primary) hypertension; Z88.5 Allergy status to narcotic agent
CPT/HCPCS: 93005; 87040 ×2; 85025; 80048; 36415; 83735; 85610; 80076; 84484; 83880; 0240U; 71045; 99284; J1100; J0456; J0696; J7030

== ENCOUNTER 2020-10-22 09:36 | Emergency (ER) | payer OTHER ==
--- NOTE | 2020-10-22 11:42 | RAD REPORT ---
EXAM DESCRIPTION: RAD - Chest Single View - 10/22/2020 11:28 am CLINICAL HISTORY: CHEST PAIN COMPARISON: Portable October 17 TECHNIQUE: AP portable chest image was obtained 10/22/2020 11:28 am . FINDINGS: Lung volumes are low. New interstitial and alveolar opacities are present in the mid and l ower left lung field and upper right lung field. Given the COVID positive history this is most likely a progressive COVID-19 pneumonia. Findings are exaggerated by the low lung volumes. Cardiomediastinal silhouette within normal limits for shallow inspiration portable imaging. Trachea i s midline. No measurable pleural effusion and no pneumothorax. No acute bony abnormality seen. No acu te aortic findings suspected. IMPRESSION: Moderate severity bilateral pneumonia most likely progressive COVID-19 pneumonia.
[2020-10-22 12:36] LABS: Absolute Lymphocytes (CBC) 0.6 K/uL (0.7-4.9); Hematocrit 42.1 % (36.0-45.0); Lymphocytes % 11.5 % (15.3-44.8); MPV 7.5 fL (7.6-11.3); RBC Red Blood Cell Count 4.65 M/uL (3.86-4.86)
[2020-10-22 12:37] LABS: Protime INR 1.06
--- NOTE | 2020-10-22 12:51 | RAD REPORT ---
EXAM DESCRIPTION: CT - Chest For Pe Angio - 10/22/2020 12:43 pm CLINICAL HISTORY: Chest pain. Chest pain;Dyspnea COMPARISON: No comparisons TECHNIQUE: CT angiogram of the pulmonary arteries was performed with MIP. All CT scans are performed using dose optimization technique as appropriate and may include automated exposure control or mA/KV adjustment according to patient size. FINDINGS: No evidence of pulmonary thromboembolism. No acute aortic finding demonstrated. Moderate interstitial and alveolar lung opacities are present. No significant pericardial or pleural fluid. No concerning bony finding. Cholecystectomy clips. IMPRESSION: No evidence of pulmonary thromboembolism. Moderate interstitial and alveolar lung opacities are present bilaterally, likely related to underlyi ng COVID-19 infection.
[2020-10-22 12:58] LABS: ALT/SGPT 33 U/L (12-78); AST/SGOT 49 U/L (15-37); Albumin 3.3 g/dL (3.4-5.0); Alkaline Phosphatase 87 U/L (45-117); BUN Blood Urea Nitrogen 24 mg/dL (7-18); Bicarbonate 27 mmol/L (21-32); Bilirubin Direct 0.2 mg/dL (0-0.2); Bilirubin Total 0.4 mg/dL (0.2-1.0); Glucose Level 112 mg/dL (74-106); Magnesium 2.3 mg/dL (1.8-2.4); NT PRO-BNP 62 pg/mL (<125); Potassium 3.8 mmol/L (3.5-5.1); Protein, Total 7.5 g/dL (6.4-8.2); Sodium Level 139 mmol/L (136-145); Troponin (Emerg Dept Use Only) < 0.02 ng/mL (0.0-0.045)
--- NOTE | 2020-10-22 13:07 | ER ---
Nurse's Notes [facility] Name: Misty Garrett Age: 65 yrs Sex: Female : 1955 Arrival Date: 10/22/2020 Time: 09:36 Bed 26 Private MD: Diagnosis: Shortness of breath;SARS-associated coronavirus as the cause of diseases classified elsewhere Presentation: 10/22 09:46 Chief complaint: Seen in ED last weekend for SOB, COVID +, c/o worsening SOB and chest hb tightness. Coronavirus screen: Client reports previous positive COVID test result. Ebola Screen: No symptoms or risks identified at this time. Initial Sepsis Screen: Does the patient meet any 2 criteria? No. Patient's initial sepsis screen is negative. Does the patient have a suspected source of infection? No. Patient's initial sepsis screen is negative. Risk Assessment: Do you want to hurt yourself or someone else? Patient reports no desire to harm self or others. Onset of symptoms was October 17, 2020. 09:46 Method Of Arrival: Ambulatory hb 09:46 Acuity: SCAR 3 hb Historical: - Allergies: 09:48 Morphine; "i get wild, hallucinations"; hb - Home Meds: 09:48 lisinopril-hydrochlorothiazide 20-12.5 mg Oral tab 1 tab once daily [Active]; hb - PMHx: 09:48 Hypertension; hb - PSHx: 09:48 Cholecystectomy; Knee surgery; hb - Immunization history:: Adult Immunizations up to date. - Social history:: Smoking status: Patient denies any tobacco usage or history of. Screenin:30 Abuse screen: Denies threats or abuse. Denies injuries from another. Nutritional dm14 screening: No deficits noted. Tuberculosis screening: No symptoms or risk factors identified. 18:33 Fall Risk None identified. dm14 Assessment: 13:00 General: Appears uncomfortable, obese, Behavior is calm, cooperative, Smells of Reports dm14 feeling ill for > 3 days, Denies. Pain: Complains of pain in back Pain does not radiate. Pain currently is 8 out of 10 on a pain scale. Quality of pain is described as Pain began 2-3 days ago. Is. Neuro: No deficits noted. Cardiovascular: No deficits noted. Respiratory: Reports shortness of breath pain with cough. GI: No deficits noted. : No deficits noted. Derm: No deficits noted. 14:26 Reassessment: Patient appears in no apparent distress at this time. Patient and/or ph family updated on plan of care and expected duration. Pain level reassessed. Patient is alert, oriented x 3, equal unlabored respirations, skin warm/dry/pink. Vital Signs: 09:46 BP 148 / 88; Pulse 83; Resp 20; Temp 99; Pulse Ox 95% on R/A; Pain 8/10; hb 12:30 BP 135 / 82 RA (auto/reg); Pulse 67; Resp 22; Temp 98.4(O); Pulse Ox 95% on R/A; Pain jp3 8/10; 18:37 BP 125 / 64; Pulse 65; Resp 22; Pulse Ox 96% ; Pain 3/10; dm14 18:38 Pain 3/10; dm14 ED Course: 09:36 Patient arrived in ED. ds1 09:48 Triage completed. hb 09:48 Arm band placed on. hb 10:46 Andrew Chua PA is PHCP. jr8 10:46 Navid Garcia MD is Attending Physician. jr8 11:28 XRAY Chest (1 view) In Process Unspecified. EDMS 12:17 Inserted saline lock: 20 gauge in left antecubital area, using aseptic technique. Blood jp3 collected. 12:17 Initial lab(s) drawn, by nh, sent to lab. Patient maintains SpO2 saturation greater jp3 than 95% on room air. 12:20 Shelbi Chapa, AN is Primary Nurse. dm14 12:28 EKG done, by ED staff, reviewed by Andrew RIVERA. jp3 12:30 Bed in low position. Call light in reach. Side rails up X2. Warm blanket given. Verbal jp3 reassurance given. monitor worker on. Pulse ox on. NIBP on. 12:43 CT Chest For PE Angio In Process Unspecified. EDMS 14:30 No provider procedures requiring assistance completed. IV discontinued, intact, dm14 bleeding controlled, No redness/swelling at site. Pressure dressing applied. Administered Medications: 13:26 Drug: fentaNYL (PF) 50 mcg Route: IVP; Infused Over: 2 mins; Site: left antecubital; dm14 18:37 Follow up: BP 125 / 64; Pulse 65 bpm; Resp 22 bpm; Pulse Ox 96% ; Pain 3/10 Adult dm14 18:38 Follow up: Pain 3/10 Adult; Response: No adverse reaction; Pain is decreased dm14 Outcome: 13:06 Discharge ordered by MD. torrez 14:30 Discharged to home ambulatory. dm14 14:30 Condition: good 14:30 Discharge instructions given to patient, Instructed on discharge instructions, follow up and referral plans. medication usage, Demonstrated understanding of instructions, follow-up care, medications, Prescriptions given X 1. 14:31 Patient left the ED. dm14 Signatures: Dispatcher [employer] [facility] BunnEvaristoi ds1 Andrew Chua PA PA jr8 Hall, Patricia, RN RN Melisa Richards RN RN Edmar Florez jp3 Shelbi Chapa RN RN dm14
--- NOTE | 2020-10-22 13:07 | EDPHYS ---
Physician Documentation [facility] Name: Misty Garrett Age: 65 yrs Sex: Female : 1955 Arrival Date: 10/22/2020 Time: 09:36 Bed 26 Private MD: ED Physician Navid Garcia HPI: 10/22 10:59 This 65 yrs old Female presents to ER via Ambulatory with complaints of Chest jr8 Pain, Shortness Of Breath, Back Pain. 10:59 The patient or guardian reports chest pain that is located primarily in the anterior jr8 chest wall. Onset: gradually, 2 day(s) ago. The pain radiates to Associated signs and symptoms: Pertinent positives: shortness of breath. The chest pain is described as sharp. Duration: The patient or guardian reports a single episode, that is still ongoing. Modifying factors: The symptoms are alleviated by nothing. the symptoms are aggravated by movement. Severity of pain: At its worst the pain was moderate in the emergency department the pain is unchanged. The patient has not experienced similar symptoms in the past. The patient has been recently seen by a physician:. Patient recently seen this past week and had been diagnosed with COVID-19. Stated that she is now having chest pain with increased shortness of breath. Historical: - Allergies: 09:48 Morphine; "i get wild, hallucinations"; hb - Home Meds: 09:48 lisinopril-hydrochlorothiazide 20-12.5 mg Oral tab 1 tab once daily [Active]; hb - PMHx: 09:48 Hypertension; hb - PSHx: 09:48 Cholecystectomy; Knee surgery; hb - Immunization history:: Adult Immunizations up to date. - Social history:: Smoking status: Patient denies any tobacco usage or history of. ROS: 10:59 Eyes: Negative for injury, pain, redness, and discharge, ENT: Negative for injury, jr8 pain, and discharge, Neck: Negative for injury, pain, and swelling, Abdomen/GI: Negative for abdominal pain, nausea, vomiting, diarrhea, and constipation, Back: Negative for injury and pain, MS/Extremity: Negative for injury and deformity, Skin: Negative for injury, rash, and discoloration, Neuro: Negative for headache, weakness, numbness, tingling, and seizure. 10:59 Cardiovascular: Positive for chest pain, Negative for edema, orthopnea, palpitations. 10:59 Respiratory: Positive for cough, shortness of breath. Exam: 10:59 Constitutional: This is a well developed, well nourished patient who is awake, alert, jr8 and in no acute distress. ENT: Nares patent. No nasal discharge, no septal abnormalities noted. Tympanic membranes are normal and external auditory canals are clear. Oropharynx with no redness, swelling, or masses, exudates, or evidence of obstruction, uvula midline. Mucous membranes moist. Neck: Trachea midline, no thyromegaly or masses palpated, and no cervical lymphadenopathy. Supple, full range of motion without nuchal rigidity, or vertebral point tenderness. No Meningismus. Chest/axilla: Normal chest wall appearance and motion. Nontender with no deformity. No lesions are appreciated. Cardiovascular: Regular rate and rhythm with a normal S1 and S2. No gallops, murmurs, or rubs. Normal PMI, no JVD. No pulse deficits. Respiratory: Lungs have equal breath sounds bilaterally, clear to auscultation and percussion. No rales, rhonchi or wheezes noted. No increased work of breathing, no retractions or nasal flaring. Abdomen/GI: Soft, non-tender, with normal bowel sounds. No distension or tympany. No guarding or rebound. No evidence of tenderness throughout. Back: No spinal tenderness. No costovertebral tenderness. Full range of motion. Skin: Warm, dry with normal turgor. Normal color with no rashes, no lesions, and no evidence of cellulitis. MS/ Extremity: Pulses equal, no cyanosis. Neurovascular intact. Full, normal range of motion. Neuro: Awake and alert, GCS 15, oriented to person, place, time, and situation. Cranial nerves II-XII grossly intact. Motor strength 5/5 in all extremities. Sensory grossly intact. Vital Signs: 09:46 BP 148 / 88; Pulse 83; Resp 20; Temp 99; Pulse Ox 95% on R/A; Pain 8/10; hb 12:30 BP 135 / 82 RA (auto/reg); Pulse 67; Resp 22; Temp 98.4(O); Pulse Ox 95% on R/A; Pain jp3 8/10; 18:37 BP 125 / 64; Pulse 65; Resp 22; Pulse Ox 96% ; Pain 3/10; dm14 18:38 Pain 3/10; dm14 MDM: 10:47 Patient medically screened. [facility] 13:02 Data reviewed: vital signs, nurses notes, lab test result(s), EKG, radiologic studies, [facility] scan, plain films. Data interpreted: Pulse oximetry: on room air is 95 %. Interpretation: normal. Counseling: I had a detailed discussion with the patient and/or guardian regarding: the historical points, exam findings, and any diagnostic results supporting the discharge/admit diagnosis, lab results, radiology results, the need for outpatient follow up, a family practitioner, to return to the emergency department if symptoms worsen or persist or if there are any questions or concerns that arise at home. ED course: Patient on appropriate medications for COVID 19. No PE. Rest of blood work stable. Spo2 RA 95-97%. Admission not necessitated at this time. Return precautions given . 10/22 10:51 Order name: Basic Metabolic Panel [facility] 10/22 10:51 Order name: CBC with Diff [facility] 10/22 10:51 Order name: LFT's; Complete Time: 13: [facility] 10/22 10:51 Order name: Magnesium; Complete Time: 13: [facility] 10/22 10:51 Order name: NT PRO-BNP; Complete Time: 13:00 [facility] 10/22 10:51 Order name: PT-INR; Complete Time: 12:58 [facility] 10/22 10:51 Order name: Troponin (emerg Dept Use Only); Complete Time: 13: [facility] 10/22 10:51 Order name: XRAY Chest (1 view); Complete Time: 11:50 8 10/22 10:51 Order name: DD; Complete Time: 13:04 [facility] 10/22 10:51 Order name: Ferritin; Complete Time: 13:00 [facility] 10/22 10:51 Order name: CRP; Complete Time: 13:00 [facility] 10/22 10:52 Order name: Basic Metabolic Panel; Complete Time: 13:00 EDMT 10/22 10:52 Order name: CBC with Automated Diff; Complete Time: 12:58 EDMT 10/22 12:26 Order name: CT Chest For PE Angio; Complete Time: 12:58 [facility] 10/22 10:51 Order name: EKG; Complete Time: 10:52 10/22 10:51 Order name: Cardiac monitoring; Complete Time: 12:24 10/22 10:51 Order name: EKG - Nurse/Tech; Complete Time: 12:10/22 10:51 Order name: IV Saline Lock; Complete Time: 12:10/22 10:51 Order name: Labs collected and sent; Complete Time: 12:10/22 10:51 Order name: O2 Per Protocol; Complete Time: :10/22 10:51 Order name: O2 Sat Monitoring; Complete Time: : Administered Medications: 13:26 Drug: fentaNYL (PF) 50 mcg Route: IVP; Infused Over: 2 mins; Site: left antecubital; dm14 18:37 Follow up: BP 125 / 64; Pulse 65 bpm; Resp 22 bpm; Pulse Ox 96% ; Pain 3/10 Adult dm14 18:38 Follow up: Pain 3/10 Adult; Response: No adverse reaction; Pain is decreased dm14 Disposition: 10/23 05:40 Co-signature as Attending Physician, Navid Garcia MD I agree with the assessment and melissa plan of care. Disposition: 10/22/20 13:06 Discharged to Home. Impression: Shortness of breath, SARS-associated coronavirus as the cause of diseases classified elsewhere. - Condition is Stable. - Discharge Instructions: Shortness of Breath, COVID-19. - Prescriptions for Tessalon Perles 100 mg Oral Capsule - take 1 capsule by ORAL route every 8 hours As needed; 21 capsule. - Work release form, Medication Reconciliation Form, Thank You Letter, Antibiotic Education, Prescription Opioid Use form. - Follow up: Private Physician; When: 5 - 6 days; Reason: Recheck today's complaints, Continuance of care, Re-evaluation by your physician. - Problem is new. - Symptoms have improved. - Notes: Continue the following meds at home: Vitamin C 2 grams 3x a day Vitamin D 4000IU daily Zinc 100mg daily Melatonin 10mg at night time Aspirin 81 mg Daily Signatures: Dispatcher [employer] Navid Neal MD MD cha Roszak, Josh, PA PA jr8 Melisa Richards RN RN Shelbi Chapa RN RN dm14 Corrections: (The following items were deleted from the chart) 10/22 14:31 13:06 10/22/2020 13:06 Discharged to Home. Impression: Shortness of breath; dm14 SARS-associated coronavirus as the cause of diseases classified elsewhere. Condition is Stable. Forms are Medication Reconciliation Form, Thank You Letter, Antibiotic Education, Prescription Opioid Use. Follow up: Private Physician; When: 5 - 6 days; Reason: Recheck today's complaints, Continuance of care, Re-evaluation by your physician. Problem is new. Symptoms have improved. jr8
[2020-10-22] MEDS ORDERED: FENTANYL CITR 100 MCG/2 ML ONE (13:33)
[2020-10-22 15:08] VITALS: O2SAT 95
[2020-10-22 15:10] VITALS: BP 135/82; TEMP 98.4
== END 2020-10-22 14:31 | disposition home or self-care (01) ==
LOC: ER 09:36
DX: U07.1 COVID-19 (principal); I10 Essential (primary) hypertension; Z88.5 Allergy status to narcotic agent
CPT/HCPCS: 85025; 80048; 36415; 83735; 85610; 85379; 80076; 84484; 82728; 83880; 86140; 71275; 71045; 96374; 99285; Q9967; J3010